=== PATIENT | female | born 1995 ===

== ENCOUNTER 2017-06-15 04:25 | Inpatient (IN) | payer MEDICAID ==
[2017-06-15 04:25] VITALS: BMI 40.6
--- NOTE | 2017-06-15 04:59 | ED PDOC ---
Arrival/HPI <Hai Cage - Last Filed: 06/15/17 06:49> - General Historian: Patient - History of Present Illness Time/Duration: 4-6 hours Symptom Onset: Sudden Symptom Course: Worsening Quality: Stabbing, Burning Activities at Onset: Light <Celina Metz - Last Filed: 06/15/17 19:27> - General Chief Complaint: GI Problem Time Seen by Provider: 06/15/17 04:31 - History of Present Illness Narrative History of Present Illness (Text): 06/15/17 04:57 Patient admitted to 2 episodes of vomiting and 3 episodes of diarrhea starting 21:45 06/14/17. Patient came to the ED because she felt that it wasn't getting better. Patient states she's come to the ED for the same reasons in the past. Patient admits to midepigastric pain, right upper quadrant pain and back pain which is more chronic. Patient admits to nausea, vomiting, diarrhea. Patient denies fever, chills, constipation, shortness of breath, chest pain, palpitations. Patient states she has a family history of cholecystitis with cholecystectomy. Patient denies having issues with gallbladder in the past. (Celina Metz) Past Medical History - Provider Review Nursing Documentation Reviewed: Yes - Infectious Disease Hx of Infectious Diseases: None - Cardiac Hx Cardiac Disorders: No - Pulmonary Hx Respiratory Disorders: No - Neurological Hx Neurological Disorder: No - HEENT Hx HEENT Disorder: No - Renal Hx Renal Disorder: No - Endocrine/Metabolic Hx Endocrine Disorders: No - Hematological/Oncological Hx Blood Disorders: No - Integumentary Hx Dermatological Disorder: No - Musculoskeletal/Rheumatological Hx Musculoskeletal Disorders: No - Gastrointestinal Hx Gastrointestinal Disorders: Yes Hx Gastritis: Yes - Genitourinary/Gynecological Hx Genitourinary Disorders: No - Psychiatric Hx Psychophysiologic Disorder: No Hx Substance Use: No - Anesthesia Hx Anesthesia: No <Celina Metz - Last Filed: 06/15/17 19:27> Family/Social History - Physician Review Nursing Documentation Reviewed: Yes Family/Social History: Other (cholelithiasis, cholecystitis, cholecystectomy) Smoking Status: Never Smoked Hx Alcohol Use: Yes Frequency of alcohol use: Socially Hx Substance Use: No <Celina Metz - Last Filed: 06/15/17 19:27> Allergies/Home Meds <Hai Cage - Last Filed: 06/15/17 06:49> <Celina Metz - Last Filed: 06/15/17 19:27> Allergies/Adverse Reactions: Allergies No Known Allergies Allergy (Verified 06/15/17 12:10) Home Medications: Home Meds Medication Instructions Recorded Confirmed RX: No Known Home Med 06/15/17 06/15/17 Review of Systems - Physician Review All systems were reviewed & negative as marked: Yes - Review of Systems Constitutional: Normal. absent: Fatigue, Weight Change, Fevers Respiratory: absent: SOB, Cough, Sputum, Wheezing Cardiovascular: absent: Chest Pain, Palpitations, Edema Gastrointestinal: Abdominal Pain, Stool Changes, Diarrhea, Nausea, Vomiting, Appetite Changes. absent: Constipation, Hematochezia, Hematemesis, Anorexia, Food Intolerance Genitourinary Female: absent: Dysuria, Frequency, Hematuria Musculoskeletal: absent: Arthralgias, Back Pain, Neck Pain, Joint Swelling, Myalgias Skin: absent: Rash, Pruritis, Skin Lesions, Laceration, Abscess Neurological: absent: Headache, Dizziness, Focal Weakness Endocrine: absent: Diaphoresis, Polyuria, Polydipsia Hemo/Lymphatic: absent: Adenopathy, Easy Bleeding, Easy Bruising Psychiatric: absent: Anxiety, Depression, Suicidal Ideation <Celina Metz - Last Filed: 06/15/17 19:27> Physical Exam Vital Signs Reviewed: Yes <NilesHai - Last Filed: 06/15/17 06:49> Vital Signs Reviewed: Yes Temperature: Afebrile Blood Pressure: Normal Pulse: Regular Respiratory Rate: Normal Appearance: Positive for: Well-Appearing Pain Distress: Mild Mental Status: Positive for: Alert and Oriented X 3. No: Confused, Agitated, Lethargic - Systems Exam Head: Present: Atraumatic, Normocephalic. No: Tenderness, Contusion, Swelling Pupils: Present: PERRL Extroacular Muscles: Present: EOMI Conjunctiva: Present: Normal. No: Injected, Icteric Mouth: Present: Dry. No: Drooling, Trismus Nose (External): Present: Atraumatic. No: Abrasion, Contusion, Laceration Nose (Internal): Present: Normal Inspection. No: No Active Bleeding, Moist, Engorged, Edematous Neck: Present: Normal Range of Motion, Trachea Midline. No: MIDLINE TENDERNESS , JVD, Lymphadenopathy, Bruit Respiratory/Chest: Present: Clear to Auscultation, Good Air Exchange. No: Respiratory Distress, Accessory Muscle Use Cardiovascular: Present: Regular Rate and Rhythm, Normal S1, S2 Abdomen: Present: Tenderness (midepigastric, RUQ pain, + Renae's sign), Guarding. No: Normal Bowel Sounds (hypoactive), Peritoneal Signs Back: Present: Normal Inspection. No: CVA Tenderness, Midline Tenderness, Paraspinal Tenderness Upper Extremity: Present: Normal Inspection, Normal ROM, NORMAL PULSES, Capillary Refill < 2s. No: Edema, Tenderness, Swelling, Erythema Lower Extremity: Present: Normal Inspection, NORMAL PULSES, Normal ROM, Capillary Refill < 2 s. No: Edema Neurological: Present: GCS=15, CN II-XII Intact, Speech Normal Skin: Present: Warm, Dry, Normal Color. No: Rashes, Diaphoretic, Erythematous Psychiatric: Present: Alert, Oriented x 3, Normal Insight, Normal Concentration , Normal Affect, Normal Mood <Celina Metz - Last Filed: 06/15/17 19:27> Vital Signs Temp Pulse Resp BP Pulse Ox 06/15/17 09:49 97.9 F 76 17 116/70 98 06/15/17 06:30 87 17 121/96 H 100 06/15/17 04:38 99 F 90 18 135/70 99 Medical Decision Making - Lab Interpretations I have reviewed the lab results: Yes <Hai Cage - Last Filed: 06/15/17 06:49> Re-evaluation Time: 06:09 Reassessment Condition: Re-examined, Improving,but remains with symptoms - Lab Interpretations I have reviewed the lab results: Yes <Celina Metz - Last Filed: 06/15/17 19:27> ED Course and Treatment: Patient Seen With Resident: In agreement with resident note which contains more details about the patient. Patient was seen and evaluated with resident. Came up with plan and treatment together. Patient presents complaining of nausea, vomiting, and diarrhea that began last night. Plan: -- Labs -- IV FLuids, Zofran Inj 06/15/17 06:50 Feels well; currently in US; consider GB disease. (Hai Cage) 06/15/17 05:02 cbc cmp lipase mag phos IVF NS @250cc/hr 06/15/17 05:33 patient asking for pain medication Toradol ordered Patient vomited x 1 episode Reglan ordered 06/15/17 06:04 RUQ Abdominal US ordered for elevated T bili, and elevated LFTs (T bili 1.7 AST/ALT 211/168) (Celina Metz) - Lab Interpretations Lab Results: 06/15/17 04:45 06/15/17 04:45 Lab Results 06/15/17 08:30: Direct Bilirubin 1.0 H 06/15/17 04:45: Sodium 142, Potassium 4.0, Chloride 104, Carbon Dioxide 25, Anion Gap 17, BUN 9, Creatinine 0.6 L, Est GFR ( Amer) > 60, Est GFR (Non -Af Amer) > 60, Random Glucose 111 H, Calcium 10.2, Magnesium 1.9, Total Bilirubin 1.7 H, AST 211 H D, ALT 168 H, Alkaline Phosphatase 104, Total Protein 7.8, Albumin 4.3, Globulin 3.5, Albumin/Globulin Ratio 1.2, Lipase 85 06/15/17 04:45: WBC 13.9 H, RBC 5.02, Hgb 13.6, Hct 41.9, MCV 83.5, MCH 27.1, MCHC 32.5, RDW 13.9, Plt Count 327, MPV 11.3 H, Gran % 72.7 H, Lymph % (Auto) 20.2 L, [place] % (Auto) 6.6 H, Eos % (Auto) 0.3 L, Baso % (Auto) 0.2, Gran # 10.12 H, Lymph # (Auto) 2.8, [place] # (Auto) 0.9 H, Eos # (Auto) 0.0, Baso # (Auto ) 0.03 06/15/17 04:35: Urine Color Yellow, Urine Appearance Clear, Urine pH 6.0, Ur Specific [place] 1.025, Urine Protein Negative, Urine Glucose (UA) Negative, Urine Ketones Negative, Urine Blood Negative, Urine Nitrate Negative, Urine Bilirubin Negative, Urine Urobilinogen 0.2, Ur Leukocyte Esterase Negative, Urine HCG, Qual Negative T bili 1.7 AST/ALT 211/168 leukocytosis 13.9 (Celina Metz) - RAD Interpretation Narrative RAD Interpretations (Text): abdominal US CBD dilation 0.68cm fatty infiltration of liver cholelithiasis, no pericholecystic fluid. (Lashay,Celina) Radiology Orders: 06/15/17 05:53 ABDOMEN COMPLETE [US] Stat 06/15/17 08:50 MRCP AND ABDOMEN W/O CONTRAST [MRI] Routine - Medication Orders Current Medication Orders: Metronidazole (Flagyl) 500 mg in 100 mls @ 100 mls/hr IVPB Q8 BREA PRN Reason: Protocol Last Admin: 06/15/17 15:14 Dose: 100 mls/hr eMAR Start Stop Document 06/15/17 15:14 CV (Rec: 06/15/17 15:14 CV [place] [id number]) Intravenous Solution Start Date 06/15/17 Start Time 15:14 Ceftriaxone Sodium (Rocephin 1 Gram Ivpb) 1 gm in 100 mls @ 100 mls/hr IVPB DAILY BREA PRN Reason: Protocol Last Admin: 06/15/17 10:12 Dose: 100 mls/hr eMAR Start Stop Document 06/15/17 10:12 EWO (Rec: 06/15/17 10:12 EWO [id number]) Intravenous Solution Start Date 06/15/17 Start Time 10:12 End Date 06/15/17 End time 11:12 Total Infusion Time 60 Ondansetron HCl (Zofran Inj) 4 mg IVP Q6H PRN PRN Reason: Nausea/Vomiting Pantoprazole Sodium (Protonix Inj) 40 mg IVP DAILY [facility] Last Admin: 06/15/17 11:00 Dose: 40 mg IVP Administration Document 06/15/17 11:00 CV (Rec: 06/15/17 15:14 CV [place] [id number]) Charges for Administration # of IVP Administrations 1 Tramadol HCl (Ultram) 50 mg PO TID PRN PRN Reason: Pain, moderate (4-7) Discontinued Medications Sodium Chloride (Sodium Chloride 0.9%) 1,000 mls @ 250 mls/hr IV .Q4H [facility] Last Admin: 06/15/17 05:04 Dose: 250 mls/hr eMAR Start Stop Document 06/15/17 05:04 RD (Rec: 06/15/17 05:04 RD [id number]) Intravenous Solution Start Date 06/15/17 Start Time 05:04 Sodium Chloride (Sodium Chloride 0.9%) 1,000 mls @ 150 mls/hr IV .Q6H40M BREA Last Admin: 06/15/17 09:06 Dose: 150 mls/hr eMAR Start Stop Document 06/15/17 09:06 EWO (Rec: 06/15/17 09:06 EWO [id number]) Intravenous Solution Start Date 06/15/17 Start Time 09:06 Sodium Chloride (Sodium Chloride 0.9%) 1,000 mls @ 100 mls/hr IV .Q10H STA Stop: 06/15/17 19:08 Last Admin: 06/15/17 09:40 Dose: 100 mls/hr eMAR Start Stop Document 06/15/17 09:40 EWO (Rec: 06/15/17 09:40 EWO [id number]) Intravenous Solution Start Date 06/15/17 Start Time 09:40 Ketorolac Tromethamine (Toradol) 30 mg IVP STAT STA Stop: 06/15/17 05:29 Last Admin: 06/15/17 05:39 Dose: 30 mg [facility] Pain Assessment Document 06/15/17 05:39 AB (Rec: 06/15/17 05:39 AB [id number]) Pain Reassessment Is this a pain reassessment? Yes Sleep Is patient sleeping during reassessment? No Presence of Pain Presence of Pain Yes Pain Scale Used Pain Scale Used Numeric Location Pain Location Body Site Abdomen IVP Administration Document 06/15/17 05:39 AB (Rec: 06/15/17 05:39 AB [id number]) Charges for Administration # of IVP Administrations 1 Re-Assess: [place] Pain Assessment Document 06/15/17 06:39 CV (Rec: 06/15/17 19:02 CV [id number]) Pain Reassessment Is this a pain reassessment? Yes Presence of Pain Presence of Pain No Metoclopramide HCl (Reglan) 10 mg IVP STAT STA Stop: 06/15/17 05:32 Last Admin: 06/15/17 05:39 Dose: 10 mg IVP Administration Document 06/15/17 05:39 AB (Rec: 06/15/17 05:39 AB [id number]) Charges for Administration # of IVP Administrations 1 Ondansetron HCl (Zofran Inj) 8 mg IVP STAT STA Stop: 06/15/17 04:50 Last Admin: 06/15/17 05:04 Dose: 8 mg IVP Administration Document 06/15/17 05:04 RD (Rec: 06/15/17 05:04 RD [id number]) Charges for Administration # of IVP Administrations 1 Pneumococcal Polyvalent Vaccine (Pneumovax 23 Vaccine) 0.5 ml IM .ONCE ONE Stop: 06/15/17 13:24 - Scribe Statement The provider has reviewed the documentation as recorded by the Scribe <Hai Cage - Last Filed: 06/15/17 06:49> <Celina Metz - Last Filed: 06/15/17 19:27> - Scribe Statement Gisela Weir Provider Scribe Attestation: All medical record entries made by the Scribe were at my direction and personally dictated by me. I have reviewed the chart and agree that the record accurately reflects my personal performance of the history, physical exam, medical decision making, and the department course for this patient. I have also personally directed, reviewed, and agree with the discharge instructions and disposition. (Hai Cage) Disposition/Present on Arrival <Hai Cage - Last Filed: 06/15/17 06:49> - Present on Arrival Any Indicators Present on Arrival: No History of DVT/PE: No History of Uncontrolled Diabetes: No Urinary Catheter: No History of Decub. Ulcer: No History Surgical Site Infection Following: None - Disposition Have Diagnosis and Disposition been Completed?: Yes Disposition Time: 07:00 Patient Plan: Discharge <Celina Metz - Last Filed: 06/15/17 19:27> - Disposition Diagnosis: Biliary colic, Elevated LFTs Disposition: HOSPITALIZED Patient Problems: Current Active Problems Problem Status Onset Biliary colic Acute Elevated LFTs Acute Condition: STABLE
[2017-06-15] MEDS ORDERED: Sodium Chloride 0.9% 1,000 ML IV SCH ×2 (05:00→09:00)
[2017-06-15 05:45] LABS: ALB/GLOB RATIO 1.2 (1.1-1.8); ALBUMIN 4.3 g/dL (3.0-4.8); ALT/SGPT 168 U/L (7-56); AST/SGOT 211 U/L (14-36); BLOOD UREA NITROGEN 9 mg/dL (7-21); CALCIUM 10.2 mg/dL (8.4-10.5); GFR AFRICAN-AMERICAN > 60; GFR NON-AFRICAN AMERICAN > 60; LIPASE 85 U/L (23-300); MAGNESIUM 1.9 mg/dL (1.7-2.2)
[2017-06-15 05:46] LABS: BASO # 0.03 K/mm3 (0.0-2.0); BASO % 0.2 % (0.0-3.0); EOS % 0.3 % (1.5-5.0); GRAN # 10.12 (1.4-6.5); GRAN % 72.7 % (50.0-68.0); HEMOGLOBIN 13.6 g/dL (12.0-16.0); LYMPH # 2.8 (1.2-3.4); LYMPH % 20.2 % (22.0-35.0); MEAN CELL VOLUME 83.5 fl (80.0-105.0); MEAN CORPUSCULAR HEMOGLOBIN 27.1 pg (25.0-35.0); MEAN CORPUSCULAR HGB CONC 32.5 g/dl (31.0-37.0); MEAN PLATELET VOLUME 11.3 fl (7.0-11.0); MONO # 0.9 (0.1-0.6); MONO % 6.6 % (1.0-6.0); RBC 5.02 10^6/uL (3.5-6.1); RED CELL DISTRIBUTION WIDTH 13.9 % (11.5-14.5); WHITE BLOOD COUNT 13.9 10^3/ul (4.5-11.0)
--- NOTE | 2017-06-15 06:58 | US ---
EXAM: US Abdomen Complete CLINICAL HISTORY: 21 years old, female; Pain; Abdominal pain; Generalized; Additional info: Ruq pain, elevated lfts, t bili elevation TECHNIQUE: Real-time ultrasound of the abdomen (complete) with image documentation. COMPARISON: CT - ABD PELVIS IV CONTRAST ONLY 2017-03-19 00:09 FINDINGS: Liver: Fatty infiltration. No mass. No intrahepatic ductal dilatation. Gallbladder: Gallstones. No wall thickening. No pericholecystic fluid. Positive Renae's sign. Common bile duct: Up to 0.68 cm in diameter. No stones. Pancreas: Unremarkable as visualized. Kidneys: Normal echogenicity. No hydronephrosis. Spleen: No splenomegaly. Aorta: Unremarkable. No aneurysm. Inferior vena cava: Unremarkable. Free fluid: No significant free fluid. IMPRESSION: 1. Cholelithiasis with positive Renae's sign. Clinical correlation is needed. 2. Borderline biliary ductal dilatation. Correlate with laboratory values. Consider MRCP. 3. Incidental/non-acute findings are described above.
--- NOTE | 2017-06-15 07:19 | ED PDOC ---
Physical Exam Vital Signs Reviewed: Yes Vital Signs Temp Pulse Resp BP Pulse Ox 06/15/17 06:30 87 17 121/96 H 100 06/15/17 04:38 99 F 90 18 135/70 99 Temperature: Afebrile Blood Pressure: Normal Pulse: Regular Respiratory Rate: Normal Appearance: Positive for: Well-Appearing, Uncomfortable, Other (uncomfortable, alert/awake, GCS = 15, oriented x 3, resting in bed) Pain Distress: None Mental Status: Positive for: Alert and Oriented X 3 - Systems Exam Head: Present: Atraumatic, Normocephalic Pupils: Present: PERRL Extroacular Muscles: Present: EOMI Conjunctiva: Present: Normal Ears: Present: Normal Mouth: Present: Moist Mucous Membranes, Normal Teeth Pharnyx: Present: Normal Nose (External): Present: Atraumatic Nose (Internal): Present: Normal Inspection Neck: Present: Normal Range of Motion, Trachea Midline. No: MIDLINE TENDERNESS Respiratory/Chest: Present: Clear to Auscultation, Good Air Exchange Cardiovascular: Present: Regular Rate and Rhythm, Normal S1, S2. No: Murmurs Abdomen: Present: Normal Bowel Sounds, Other (+ renae's sign, no mcburney's point tenderness, no masses/rebound/guarding/rigidity, obese/well nourished female) Back: Present: Normal Inspection. No: CVA Tenderness, Midline Tenderness Upper Extremity: Present: Normal Inspection, Normal ROM, NORMAL PULSES, Neurovascularly Intact, Capillary Refill < 2s Lower Extremity: Present: Normal Inspection, NORMAL PULSES, Normal ROM, Neurovascularly Intact, Capillary Refill < 2 s Neurological: Present: GCS=15, CN II-XII Intact, Speech Normal Skin: Present: Warm, Normal Color Psychiatric: Present: Alert, Oriented x 3 Medical Decision Making ED Course and Treatment: 06/15/17 07:18 The patient is signed over to me by Dr. Cage. The patient is currently pending US results and reevaluation to be disposition accordingly. 06/15/17 07:57 Ultrasound IMPRESSION: 1. Cholelithiasis with positive Renae's sign. Clinical correlation is needed. 2. Borderline biliary ductal dilatation. Correlate with laboratory values. Consider MRCP. 3. Incidental/non-acute findings are described above. 06/15/17 08:02 Spoke to zoning engineer surgical training specialist and made aware, will evaluate patient at bedside for surgical consult. 06/15/17 0845 surgery team/resident evaluated patient, would like patient admitted to MEDICINE , initiate GI consult and plan is to take the GB out saturday; pt is made aware, and will be recommended for admission pt is made aware of her medical results pt agrees with admission 9:00 - hospitalists contacted, made aware, agrees with admission Re-evaluation Time: 08:50 Reassessment Condition: Improving,but remains with symptoms - Lab Interpretations Lab Results: 06/15/17 04:45 06/15/17 04:45 Lab Results 06/15/17 04:45: Sodium 142, Potassium 4.0, Chloride 104, Carbon Dioxide 25, Anion Gap 17, BUN 9, Creatinine 0.6 L, Est GFR ( Amer) > 60, Est GFR (Non -Af Amer) > 60, Random Glucose 111 H, Calcium 10.2, Magnesium 1.9, Total Bilirubin 1.7 H, AST 211 H D, ALT 168 H, Alkaline Phosphatase 104, Total Protein 7.8, Albumin 4.3, Globulin 3.5, Albumin/Globulin Ratio 1.2, Lipase 85 06/15/17 04:45: WBC 13.9 H, RBC 5.02, Hgb 13.6, Hct 41.9, MCV 83.5, MCH 27.1, MCHC 32.5, RDW 13.9, Plt Count 327, MPV 11.3 H, Gran % 72.7 H, Lymph % (Auto) 20.2 L, [place] % (Auto) 6.6 H, Eos % (Auto) 0.3 L, Baso % (Auto) 0.2, Gran # 10.12 H, Lymph # (Auto) 2.8, [place] # (Auto) 0.9 H, Eos # (Auto) 0.0, Baso # (Auto ) 0.03 I have reviewed the lab results: Yes Interpretation: Abnormal lab values (elevated LFTs and Tbili) - RAD Interpretation Radiology Orders: 06/15/17 05:53 ABDOMEN COMPLETE [US] Stat 06/15/17 08:50 MRCP AND ABDOMEN W/O CONTRAST [MRI] Routine Funnel Setter: Radiologist - Medication Orders Current Medication Orders: Sodium Chloride (Sodium Chloride 0.9%) 1,000 mls @ 150 mls/hr IV .Q6H40M BREA Last Admin: 06/15/17 09:06 Dose: 150 mls/hr eMAR Start Stop Document 06/15/17 09:06 EWO (Rec: 06/15/17 09:06 EWO [id number]) Intravenous Solution Start Date 06/15/17 Start Time 09:06 Ciprofloxacin (Cipro 400mg/200ml Dsw) 400 mg in 200 mls @ 133.3 mls/hr IVPB Q12 BREA PRN Reason: Protocol Stop: 06/15/17 11:31 Metronidazole (Flagyl) 500 mg in 100 mls @ 100 mls/hr IVPB Q8 BREA PRN Reason: Protocol Sodium Chloride (Sodium Chloride 0.9%) 1,000 mls @ 100 mls/hr IV .Q10H STA Stop: 06/15/17 19:08 Ondansetron HCl (Zofran Inj) 4 mg IVP Q6H PRN PRN Reason: Nausea/Vomiting Tramadol HCl (Ultram) 50 mg PO TID PRN PRN Reason: Pain, moderate (4-7) Discontinued Medications Sodium Chloride (Sodium Chloride 0.9%) 1,000 mls @ 250 mls/hr IV .Q4H [facility] Last Admin: 06/15/17 05:04 Dose: 250 mls/hr eMAR Start Stop Document 06/15/17 05:04 RD (Rec: 06/15/17 05:04 RD [id number]) Intravenous Solution Start Date 06/15/17 Start Time 05:04 Ketorolac Tromethamine (Toradol) 30 mg IVP STAT STA Stop: 06/15/17 05:29 Last Admin: 06/15/17 05:39 Dose: 30 mg MAR Pain Assessment Document 06/15/17 05:39 AB (Rec: 06/15/17 05:39 AB [id number]) Pain Reassessment Is this a pain reassessment? Yes Sleep Is patient sleeping during reassessment? No Presence of Pain Presence of Pain Yes Pain Scale Used Pain Scale Used Numeric Location Pain Location Body Site Abdomen IVP Administration Document 06/15/17 05:39 AB (Rec: 06/15/17 05:39 AB [id number]) Charges for Administration # of IVP Administrations 1 Metoclopramide HCl (Reglan) 10 mg IVP STAT STA Stop: 06/15/17 05:32 Last Admin: 06/15/17 05:39 Dose: 10 mg IVP Administration Document 06/15/17 05:39 AB (Rec: 06/15/17 05:39 AB [id number]) Charges for Administration # of IVP Administrations 1 Ondansetron HCl (Zofran Inj) 8 mg IVP STAT STA Stop: 06/15/17 04:50 Last Admin: 06/15/17 05:04 Dose: 8 mg IVP Administration Document 06/15/17 05:04 RD (Rec: 06/15/17 05:04 RD [id number]) Charges for Administration # of IVP Administrations 1 - Scribe Statement The provider has reviewed the documentation as recorded by the Wilburibrichi Michael Provider Scribe Attestation: All medical record entries made by the Scribe were at my direction and personally dictated by me. I have reviewed the chart and agree that the record accurately reflects my personal performance of the history, physical exam, medical decision making, and the department course for this patient. I have also personally directed, reviewed, and agree with the discharge instructions and disposition. Disposition/Present on Arrival - Present on Arrival Any Indicators Present on Arrival: No History of DVT/PE: No History of Uncontrolled Diabetes: No Urinary Catheter: No History of Decub. Ulcer: No History Surgical Site Infection Following: None - Disposition Have Diagnosis and Disposition been Completed?: Yes Diagnosis: Biliary colic, Elevated LFTs Disposition: HOSPITALIZED Disposition Time: 09:08 Patient Plan: Admission Patient Problems: Current Active Problems Problem Status Onset Biliary colic Acute Elevated LFTs Acute Condition: STABLE Forms: [employer]IQ (Sing[place]an)
[2017-06-15] MEDS ORDERED: Sodium Chloride 0.9% 1,000 ML IV STA (09:09)
--- NOTE | 2017-06-15 09:50 | CP.PCM.HP ---
<Vernon Butcher - Last Filed: 06/15/17 10:07> History of Present Illness - History of Present Illness History of Present Illness: CC: Abdominal pain with n/v/d 21 F with no past medical history presents to the emergency department for abdominal pain. Patient states that her abdominal pain started 10pm last night. The pain is located in the R upper quadrant, radiates to the back and 10/10 in severity. Patient states that the pain was accompanied with 2 episodes of non bloody non bilious vomiting, and 3 episodes of non bloody diarrhea prior to arriving to the hospital. She states that she came to the ED with similar symptoms in the past and she was told it was gastritis. Denies any recent travel or sick contacts. She denies any fevers, chills, headaches, dizziness, sob, chest pain, palpitations, urinary changes. In the ED lab work showed wbc of 13.9, AST 211, ALT 168, Tbili 1.7. Abd US showed cholelithiasis and mild CBD dilation of 0.68cm. 12 Point ROS performed and negative other than stated above PMH: Denies PSHx: Denies Med: None ALL: NKA SH: Denies smoking, etoh use, or recreational drug use FH: Denies Present on Admission - Present on Admission Any Indicators Present on Admission: No Review of Systems - Review of Systems All systems: reviewed and no additional remarkable complaints except Past Patient History - Infectious Disease Hx of Infectious Diseases: None - Past Social History Smoking Status: Never Smoked - CARDIAC Hx Cardiac Disorders: No - PULMONARY Hx Respiratory Disorders: No - NEUROLOGICAL Hx Neurological Disorder: No - HEENT Hx HEENT Problems: No - RENAL Hx Chronic Kidney Disease: No - ENDOCRINE/METABOLIC Hx Endocrine Disorders: No - HEMATOLOGICAL/ONCOLOGICAL Hx Blood Disorders: No - INTEGUMENTARY Hx Dermatological Problems: No - MUSCULOSKELETAL/RHEUMATOLOGICAL Hx Musculoskeletal Disorders: No - GASTROINTESTINAL Hx Gastrointestinal Disorders: Yes Hx Gastritis: Yes - GENITOURINARY/GYNECOLOGICAL Hx Genitourinary Disorders: No - PSYCHIATRIC Hx Psychophysiologic Disorder: No Hx Substance Use: No - SURGICAL HISTORY Hx Surgeries: No - ANESTHESIA Hx Anesthesia: No Meds Allergies/Adverse Reactions: Allergies Allergy/AdvReac Type Severity Reaction Status Date / Time No Known Allergies Allergy Verified 06/15/17 12:10 Physical Exam - Constitutional Appears: No Acute Distress - Head Exam Head Exam: ATRAUMATIC, NORMOCEPHALIC - Eye Exam Eye Exam: EOMI, PERRL Pupil Exam: NORMAL ACCOMODATION - ENT Exam ENT Exam: Mucous Membranes Moist - Respiratory Exam Respiratory Exam: Clear to Auscultation Bilateral. absent: Wheezes - Cardiovascular Exam Cardiovascular Exam: REGULAR RHYTHM, RRR, +S1, +S2 - GI/Abdominal Exam GI & Abdominal Exam: Normal Bowel Sounds, Soft, Tenderness. absent: Distended, Organomegaly Additional comments: Mild RUQ tenderness, + murpheys - Extremities Exam Extremities exam: Negative for: calf tenderness, pedal edema - Neurological Exam Neurological exam: Alert, Oriented x3 - Psychiatric Exam Psychiatric exam: Normal Mood - Skin Skin Exam: Dry, Intact, Warm Results - Vital Signs Recent Vital Signs: Last Vital Signs Temp 99 F 06/15/17 04:38 Pulse 87 06/15/17 06:30 Resp 17 06/15/17 06:30 BP 121/96 H 06/15/17 06:30 Pulse Ox 100 06/15/17 06:30 - Labs Result Diagrams: 06/15/17 04:45 06/15/17 04:45 Labs: Laboratory Results - last 24 hr 06/15/17 06/15/17 04:45 04:45 WBC 13.9 H RBC 5.02 Hgb 13.6 Hct 41.9 MCV 83.5 MCH 27.1 MCHC 32.5 RDW 13.9 Plt Count 327 MPV 11.3 H Gran % 72.7 H Lymph % (Auto) 20.2 L [place] % (Auto) 6.6 H Eos % (Auto) 0.3 L Baso % (Auto) 0.2 Gran # 10.12 H Lymph # (Auto) 2.8 [place] # (Auto) 0.9 H Eos # (Auto) 0.0 Baso # (Auto) 0.03 Sodium 142 Potassium 4.0 Chloride 104 Carbon Dioxide 25 Anion Gap 17 BUN 9 Creatinine 0.6 L Est GFR ( Amer) > 60 Est GFR (Non-Af Amer) > 60 Random Glucose 111 H Calcium 10.2 Magnesium 1.9 Total Bilirubin 1.7 H AST 211 H D ALT 168 H Alkaline Phosphatase 104 Total Protein 7.8 Albumin 4.3 Globulin 3.5 Albumin/Globulin Ratio 1.2 Lipase 85 Assessment & Plan - Assessment and Plan (Free Text) Assessment: 21 F with no past medical history presents to the emergency department for abdominal pain. Patient found to cholelithiasis on abd US, r/o choledocholithiasis. Awaiting MRCP. 1. Abdominal pain 2/2 cholelithiasis, r/o choledocholithiasis - Wbc 13.9, afebrile - AST 211, ALT 168, Tbili 1.7 - Cont to monitor LFTs - MRCP ordered - will f/u - Abx- d/danielle Cipro, started on Rocephin and Flagyl - F/u Surgery consult recs - F/u GI consult recs - Pain control - Tramadol 50mg TID PRN - Antiemetic therapy as needed - IVF with NS @ 100 - Daily labs 2. GI/DVT ppx - Protonix and SCDs & ambulation Case and plan was reviewed and discussed in detail with Dr Jensen <Ramirez Jensen - Last Filed: 06/15/17 13:43> Results - Vital Signs Recent Vital Signs: Last Vital Signs Temp 97.9 F 06/15/17 13:05 Pulse 76 06/15/17 13:05 Resp 17 06/15/17 13:05 BP 116/70 06/15/17 13:05 Pulse Ox 98 06/15/17 09:49 - Labs Result Diagrams: 06/15/17 04:45 06/15/17 04:45 Labs: Laboratory Results - last 24 hr 06/15/17 11:30 PT 12.6 H INR 1.09 H Attending/Attestation - Attestation I have personally seen and examined this patient.: Yes I have fully participated in the care of the patient.: Yes I have reviewed all pertinent clinical information: Yes Notes (Text): I have seen and examined the patient at bedside. Agree with the above note with the following additions/ exceptions: Briefly this is 21 year old female with history of morbid obesity who came for evaluation of abdominal pain and found to have biliary colic. Patient had multiple episodes of RUQ pain in the past. She has leukocytosis, hyperbilirubinemia and transaminitis. US revealed cholelithiasis and dilated CBD 7mm. MRCP pending. GI and surgery on board. Upon discharge patient will follow up with PMD of choice. Dr Ramirez Jensen
[2017-06-15] MEDS ORDERED: Ciprofloxacin 400mg/200ml D5W 400 MG/200 ML BAG IVPB SCH (10:00)
[2017-06-15] MEDS: cefTRIAXone 1 gm 1 GM/100 ML BAG IVPB SCH (10:12)
--- NOTE | 2017-06-15 10:26 | CP.PCM.CON ---
History of Present Illness - History of Present Illness History of Present Illness: Asked by hospitalist team for a GI consultation on this patient. 21 year old female with history of obesity (BMI 40) who presents to hospital with complaint of sudden onset abdominal pain which began yesterday at 10 pm. Prior to this she was in usual state of health, ate steak and rice for dinner and went to sleep. She was awoken from sleep with sharp 8/10 intensity RUQ abdominal pain which radiated to back. This was associated with nausea and two episodes of non -bloody emesis. She reports similar pain episodes which have been intermittent for the past 6 months. She denies fever/chills, weight loss, jaundice, pruritis. No prior endoscopic evaluation. Social history: non-smoker, social ETOH use Family history: reviewed, patient denies history of GI malignancies Review of Systems - Review of Systems Review of Systems: - All other comprehensive 12 point review of systems performed, negative - Cardiovascular Cardiovascular: absent: Acrocyanosis, Chest Pain, Chest Pain at Rest, Chest Pain with Activity, Claudication, Diaphoresis, Dyspnea, Dyspnea on Exertion, Edema, Irregular Heart Rhythm, Pain Radiating to Arm/Neck/Jaw, Leg Edema, Leg Ulcers, Lightheadedness, Orthopnea, Palpitations, Paroxysmal Nocturnal Dyspnea, Pedal Edema, Radiating Pain, Rapid Heart Rate, Slow Heart Rate, Syncope, Other - Respiratory Respiratory: absent: Cough, Dyspnea, Hemoptysis, Dyspnea on Exertion, Wheezing, Snoring, Stridor, Pain on Inspiration, Chest Congestion, Excessive Mucous Production, Change in Mucous Color, Pain with Coughing, Other - Gastrointestinal Gastrointestinal: Abdominal Pain, Nausea, Vomiting - Musculoskeletal Musculoskeletal: absent: Abnormal Gait, Arthralgias, Atrophy, Back Pain, Deformity, Joint Swelling, Limited Range of Motion, Loss of Height, Muscle Cramps, Muscle Weakness, Myalgias, Neck Pain, Numbness, Radiating Pain into Limb , Stiffness, Tingling, Other - Neurological Neurological: absent: Abnormal Gait, Abnormal Hearing, Abnormal Movements, Abnormal Speech, Behavioral Changes, Burning Sensations, Confusion, Convulsions , Disequilibrium, Dizziness, Numbness, Focal Weakness, Frequent Falls, Headaches , Lack of Coordination, Loss of Vision, Memory Loss, Paresthesias, Radicular Pain, Restless Legs, Sensory Deficit, Syncope, Tingling, Tremor, Vertigo, Weakness, Other Visual Disturbances, Other Past Patient History - Infectious Disease Hx of Infectious Diseases: None - Past Social History Smoking Status: Never Smoked - CARDIAC Hx Cardiac Disorders: No - PULMONARY Hx Respiratory Disorders: No - NEUROLOGICAL Hx Neurological Disorder: No - HEENT Hx HEENT Problems: No - RENAL Hx Chronic Kidney Disease: No - ENDOCRINE/METABOLIC Hx Endocrine Disorders: No - HEMATOLOGICAL/ONCOLOGICAL Hx Blood Disorders: No - INTEGUMENTARY Hx Dermatological Problems: No - MUSCULOSKELETAL/RHEUMATOLOGICAL Hx Musculoskeletal Disorders: No - GASTROINTESTINAL Hx Gastrointestinal Disorders: Yes Hx Gastritis: Yes - GENITOURINARY/GYNECOLOGICAL Hx Genitourinary Disorders: No - PSYCHIATRIC Hx Psychophysiologic Disorder: No Hx Substance Use: No - SURGICAL HISTORY Hx Surgeries: No - ANESTHESIA Hx Anesthesia: No Meds Allergies/Adverse Reactions: Allergies Allergy/AdvReac Type Severity Reaction Status Date / Time No Known Allergies Allergy Verified 05/23/17 03:48 - Medications Medications: Current Medications Metronidazole (Flagyl) 500 mg in 100 mls @ 100 mls/hr IVPB Q8 [facility] PRN Reason: Protocol Sodium Chloride (Sodium Chloride 0.9%) 1,000 mls @ 100 mls/hr IV .Q10H [facility] Stop: 06/15/17 19:08 Last Admin: 06/15/17 09:40 Dose: 100 mls/hr Ceftriaxone Sodium (Rocephin 1 Gram Ivpb) 1 gm in 100 mls @ 100 mls/hr IVPB DAILY [facility] PRN Reason: Protocol Last Admin: 06/15/17 10:12 Dose: 100 mls/hr Ondansetron HCl (Zofran Inj) 4 mg IVP Q6H PRN PRN Reason: Nausea/Vomiting Pantoprazole Sodium (Protonix Inj) 40 mg IVP DAILY [facility] Tramadol HCl (Ultram) 50 mg PO TID PRN PRN Reason: Pain, moderate (4-7) Physical Exam - Constitutional Appears: Non-toxic, No Acute Distress - Head Exam Head Exam: NORMAL INSPECTION - Eye Exam Eye Exam: EOMI, Normal appearance - ENT Exam ENT Exam: Mucous Membranes Moist - Respiratory Exam Respiratory Exam: Clear to Auscultation Bilateral - Cardiovascular Exam Cardiovascular Exam: REGULAR RHYTHM, +S1, +S2 - GI/Abdominal Exam GI & Abdominal Exam: Normal Bowel Sounds, Soft, Tenderness Additional comments: RUQ tenderness to palpation, +maier's no palpable hepato/splenomegaly - Extremities Exam Extremities exam: Positive for: normal inspection - Neurological Exam Neurological exam: Alert, CN II-XII Intact, Oriented x3, Reflexes Normal - Psychiatric Exam Psychiatric exam: Normal Affect, Normal Mood - Skin Skin Exam: Dry, Intact, Normal Color, Warm Results - Vital Signs Recent Vital Signs: Last Vital Signs Temp 97.9 F 06/15/17 09:49 Pulse 76 06/15/17 09:49 Resp 17 06/15/17 09:49 BP 116/70 06/15/17 09:49 Pulse Ox 98 06/15/17 09:49 - Labs Result Diagrams: 06/15/17 04:45 06/15/17 04:45 Assessment & Plan - Assessment and Plan (Free Text) Assessment: Obesity Abdominal pain - acute cholecystitis Transaminitis Abdominal US reviewed by me showing cholelithiasis with CBD of 7mm, no intrahepatic ductal dilation Plan: - NPO - Continue with antibiotic therapy - Obtain direct bilirubin - Continue to monitor LFTs, obtain viral hepatitis panel - Obtain MRCP for further evaluation, rule out choledocholithiasis - Follow up surgical recommendations regarding timing of potential cholecystectomy
[2017-06-15 10:57] LABS: HCG,QUALITATIVE URINE NEGATIVE (NEGATIVE)
[2017-06-15 10:59] LABS: URINE BILIRUBIN NEGATIVE (NEGATIVE); URINE BLOOD NEGATIVE (NEGATIVE); URINE GLUCOSE (UA) NEGATIVE (NEGATIVE); URINE LEUKOCYTE ESTERASE NEGATIVE Leu/uL (NEGATIVE); URINE NITRATE NEGATIVE (NEGATIVE); URINE PROTEIN NEGATIVE mg/dL (<30 mg/dL); URINE UROBILINOGEN 0.2 E.U./dL (<1 E.U./dL)
[2017-06-15 11:00] LABS: URINE APPEARANCE CLEAR (CLEAR); URINE COLOR YELLOW (YELLOW)
[2017-06-15 12:13] LABS: INR 1.09 (0.93-1.08); PROTHROMBIN TIME 12.6 SECONDS (9.4-12.5)
--- NOTE | 2017-06-15 13:02 | CP.PCM.CON ---
<Sung Yuan - Last Filed: 06/15/17 15:20> History of Present Illness - History of Present Illness History of Present Illness: Surgery Consult note. Dr. Garcia. 21yo F with no PMHx here for evaluation of RUQ pain. She states that she ate pizza at around 8PM last night and then felt severe RUQ pain which began at 10PM. Pain was described as sharp, unrelenting, radiates to mid back. Associated with nausea, no vomiting. States that she has had similar episodes for the past 6 months, however, this episode has been the worst one yet. She was never diagnosed with gallstones in the past. Does report a strong family history of gallstones. Currently, she denies any F/C. No CP/SOB. No sick contacts. Is sexually active. Denies possibility of , and LMP was 3 weeks ago. In ED, Abd US shows cholelithiasis, no wall thickening, no perichole fluid, no CBD stone, 6.8mm CBD. PMHx: denies PSHx: denies Social Hx: denies Tobacco use; Rare, social ETOH use; Denies illicit drugs NKDA Review of Systems - Constitutional Constitutional: absent: Chills, Fever - Cardiovascular Cardiovascular: absent: Chest Pain, Dyspnea - Respiratory Respiratory: absent: Dyspnea - Gastrointestinal Gastrointestinal: Abdominal Pain, Nausea. absent: Diarrhea, Hematemesis, Hematochezia, Melena, Vomiting - Genitourinary Genitourinary: absent: Dysuria Past Patient History - Infectious Disease Hx of Infectious Diseases: None - Past Social History Smoking Status: Never Smoked - CARDIAC Hx Cardiac Disorders: No - PULMONARY Hx Respiratory Disorders: No - NEUROLOGICAL Hx Neurological Disorder: No - HEENT Hx HEENT Problems: No - RENAL Hx Chronic Kidney Disease: No - ENDOCRINE/METABOLIC Hx Endocrine Disorders: No - HEMATOLOGICAL/ONCOLOGICAL Hx Blood Disorders: No - INTEGUMENTARY Hx Dermatological Problems: No - MUSCULOSKELETAL/RHEUMATOLOGICAL Hx Musculoskeletal Disorders: No - GASTROINTESTINAL Hx Gastrointestinal Disorders: Yes Hx Gastritis: Yes - GENITOURINARY/GYNECOLOGICAL Hx Genitourinary Disorders: No - PSYCHIATRIC Hx Psychophysiologic Disorder: No Hx Substance Use: No - SURGICAL HISTORY Hx Surgeries: No - ANESTHESIA Hx Anesthesia: No Meds Allergies/Adverse Reactions: Allergies Allergy/AdvReac Type Severity Reaction Status Date / Time No Known Allergies Allergy Verified 06/15/17 12:10 - Medications Medications: Current Medications Metronidazole (Flagyl) 500 mg in 100 mls @ 100 mls/hr IVPB Q8 [facility] PRN Reason: Protocol Sodium Chloride (Sodium Chloride 0.9%) 1,000 mls @ 100 mls/hr IV .Q10H [facility] Stop: 06/15/17 19:08 Last Admin: 06/15/17 09:40 Dose: 100 mls/hr Ceftriaxone Sodium (Rocephin 1 Gram Ivpb) 1 gm in 100 mls @ 100 mls/hr IVPB DAILY [facility] PRN Reason: Protocol Last Admin: 06/15/17 10:12 Dose: 100 mls/hr Ondansetron HCl (Zofran Inj) 4 mg IVP Q6H PRN PRN Reason: Nausea/Vomiting Pantoprazole Sodium (Protonix Inj) 40 mg IVP DAILY [facility] Tramadol HCl (Ultram) 50 mg PO TID PRN PRN Reason: Pain, moderate (4-7) Physical Exam - Constitutional Appears: Well, Non-toxic, No Acute Distress - Head Exam Head Exam: ATRAUMATIC, NORMAL INSPECTION, NORMOCEPHALIC - Eye Exam Eye Exam: EOMI. absent: Scleral icterus - ENT Exam ENT Exam: Mucous Membranes Moist - Respiratory Exam Respiratory Exam: NORMAL BREATHING PATTERN. absent: Accessory Muscle Use, Respiratory Distress - Cardiovascular Exam Cardiovascular Exam: absent: JVD - GI/Abdominal Exam GI & Abdominal Exam: Soft, Tenderness (RUQ tenderness to palpation. Renae's sign positive.). absent: Distended, Firm, Guarding, Hernia, Mass, Rebound, Rigid - Extremities Exam Extremities exam: Positive for: normal inspection. Negative for: calf tenderness - Back Exam Back exam: NORMAL INSPECTION - Neurological Exam Neurological exam: Alert, Oriented x3 - Psychiatric Exam Psychiatric exam: Normal Affect, Normal Mood - Skin Skin Exam: Dry, Intact, Normal Color, Warm Results - Vital Signs Recent Vital Signs: Last Vital Signs Temp 97.9 F 06/15/17 09:49 Pulse 76 06/15/17 09:49 Resp 17 06/15/17 09:49 BP 116/70 06/15/17 09:49 Pulse Ox 98 06/15/17 09:49 - Labs Result Diagrams: 06/15/17 04:45 06/15/17 04:45 Labs: Laboratory Results - last 24 hr 06/15/17 11:30 PT 12.6 H INR 1.09 H Assessment & Plan - Assessment and Plan (Free Text) Assessment: 21yo F with symptomatic cholelithiasis, possible cholecystitis. R/o Choledocholithiasis - Leukocytosis noted; Afebrile - Abd US noted - LFTs noted Plan: - f/u MRCP as ordered - Liquids until ready for MRCP. Will be obtained tomorrow as per MRI dept - IVF - IV abx - Pain management - Zofran - f/u GI recs - Will plan for OR early next week, pending current work-up Further recs as per Dr. Radha Yuan PGY1 surgery pager: [phone] <Reese Garcia - Last Filed: 06/16/17 10:48> Meds - Medications Medications: Current Medications Metronidazole (Flagyl) 500 mg in 100 mls @ 100 mls/hr IVPB Q8 [facility] PRN Reason: Protocol Last Admin: 06/16/17 05:38 Dose: 100 mls/hr Ceftriaxone Sodium (Rocephin 1 Gram Ivpb) 1 gm in 100 mls @ 100 mls/hr IVPB DAILY [facility] PRN Reason: Protocol Last Admin: 06/16/17 09:51 Dose: 100 mls/hr Dextrose/Sodium Chloride (Dextrose 5%/0.45% Ns 1000 Ml) 1,000 mls @ 125 mls/hr IV .Q8H [facility] Last Admin: 06/16/17 08:45 Dose: 125 mls/hr Ondansetron HCl (Zofran Inj) 4 mg IVP Q6H PRN PRN Reason: Nausea/Vomiting Pantoprazole Sodium (Protonix Inj) 40 mg IVP DAILY [facility] Last Admin: 06/16/17 09:50 Dose: 40 mg Tramadol HCl (Ultram) 50 mg PO TID PRN PRN Reason: Pain, moderate (4-7) Results - Vital Signs Recent Vital Signs: Last Vital Signs Temp 97.8 F 06/16/17 07:30 Pulse 69 06/16/17 07:30 Resp 20 06/16/17 07:30 BP 130/77 06/16/17 07:30 Pulse Ox 97 06/16/17 07:30 - Labs Result Diagrams: 06/16/17 08:36 06/16/17 08:36 Labs: Laboratory Results - last 24 hr 06/15/17 06/16/17 06/16/17 11:30 08:36 08:36 WBC 10.0 D RBC 4.44 Hgb 11.7 L Hct 37.6 MCV 84.7 MCH 26.4 MCHC 31.1 RDW 14.2 Plt Count 273 MPV 11.3 H Gran % 66.0 Lymph % (Auto) 25.8 [place] % (Auto) 6.8 H Eos % (Auto) 1.2 L Baso % (Auto) 0.2 Gran # 6.57 H Lymph # (Auto) 2.6 [place] # (Auto) 0.7 H Eos # (Auto) 0.1 Baso # (Auto) 0.02 PT 12.6 H INR 1.09 H Sodium 142 Potassium 3.8 Chloride 108 H Carbon Dioxide 23 Anion Gap 15 BUN 9 Creatinine 0.7 Est GFR ( Amer) > 60 Est GFR (Non-Af Amer) > 60 Random Glucose 66 L Calcium 9.0 Total Bilirubin 1.2 AST 117 H D ALT 208 H Alkaline Phosphatase 98 Total Protein 6.5 Albumin 3.5 Globulin 3.0 Albumin/Globulin Ratio 1.2 Attending/Attestation - Attestation I have personally seen and examined this patient.: Yes I have fully participated in the care of the patient.: Yes I have reviewed all pertinent clinical information: Yes Notes (Text): Pt was seen and examined at bedside Agree with above note and assessment Pt with RLQ pain and tenderness Labs and radiology reviewed Ass: Cholelithiasis with cholecystitis with Abnormal LFts Plan: MRCP GI consult for possible ERCP NPO, IVF IV antibiotics Plan d.w pt in detail Risk and benefit explained in detail.
[2017-06-15] MEDS ORDERED: Influenza Vaccine 60 mcg/0.5 mL SYR (4YR UP) IM ONE (13:23)
[2017-06-15] MEDS ORDERED: Pneumococcal 23-Valent Vaccine IM ONE (13:23)
[2017-06-15] MEDS: metroNIDAZOLE IV 500 mg/100 ml 500 MG/100 ML BAG IVPB SCH ×2 (15:14→21:55)
--- NOTE | 2017-06-15 17:04 | RAD ---
HISTORY: Pre-op eval COMPARISON: No prior. FINDINGS: LUNGS: No active pulmonary disease. PLEURA: No significant pleural effusion identified, no pneumothorax apparent. CARDIOVASCULAR: Normal. OSSEOUS STRUCTURES: No significant abnormalities. VISUALIZED UPPER ABDOMEN: Normal. OTHER FINDINGS: None. IMPRESSION: No active disease.
[2017-06-16] MEDS: metroNIDAZOLE IV 500 mg/100 ml 500 MG/100 ML BAG IVPB SCH ×3 (05:38→22:14)
[2017-06-16] MEDS: Dextrose 5%/0.45% NS 1,000 ML IV SCH (08:45)
[2017-06-16 08:51] LABS: BASO # 0.02 K/mm3 (0.0-2.0); BASO % 0.2 % (0.0-3.0); EOS # 0.1 (0.0-0.7); EOS % 1.2 % (1.5-5.0); GRAN # 6.57 (1.4-6.5); HEMOGLOBIN 11.7 g/dL (12.0-16.0); LYMPH # 2.6 (1.2-3.4); LYMPH % 25.8 % (22.0-35.0); MEAN CELL VOLUME 84.7 fl (80.0-105.0); MEAN CORPUSCULAR HEMOGLOBIN 26.4 pg (25.0-35.0); MEAN CORPUSCULAR HGB CONC 31.1 g/dl (31.0-37.0); MEAN PLATELET VOLUME 11.3 fl (7.0-11.0); MONO # 0.7 (0.1-0.6); MONO % 6.8 % (1.0-6.0); RBC 4.44 10^6/uL (3.5-6.1); RED CELL DISTRIBUTION WIDTH 14.2 % (11.5-14.5)
[2017-06-16 09:14] LABS: ALB/GLOB RATIO 1.2 (1.1-1.8); ALBUMIN 3.5 g/dL (3.0-4.8); ALT/SGPT 208 U/L (7-56); AST/SGOT 117 U/L (14-36); BLOOD UREA NITROGEN 9 mg/dL (7-21); GFR AFRICAN-AMERICAN > 60; GFR NON-AFRICAN AMERICAN > 60
--- NOTE | 2017-06-16 09:34 | CP.PCM.PN ---
<Lorena Horner - Last Filed: 06/16/17 09:36> Subjective - Date & Time of Evaluation Date of Evaluation: 06/16/17 Time of Evaluation: 07:30 - Subjective Subjective: GENERAL SURGERY PROGESS NOTE FOR DR. LUGO Patient seen and examined at beside. Patient states she had one episode of epigastric abdominal pain overnight controlled with medication, no pain since. She is tolerating full liquid diet yesterday. No nausea or vomiting. Patient denies flatus. Denies bowel movement. Objective - Vital Signs/Intake and Output Vital Signs (last 24 hours): Temp Pulse Resp BP Pulse Ox 97.8 F 69 20 130/77 97 06/16/17 07:30 06/16/17 07:30 06/16/17 07:30 06/16/17 07:30 06/16/17 07:30 Intake and Output: 06/16/17 06/16/17 06:59 18:59 Intake Total 1260 540 Output Total 3 Balance 1260 537 - Medications Medications: Current Medications Metronidazole (Flagyl) 500 mg in 100 mls @ 100 mls/hr IVPB Q8 [facility] PRN Reason: Protocol Last Admin: 06/16/17 05:38 Dose: 100 mls/hr Ceftriaxone Sodium (Rocephin 1 Gram Ivpb) 1 gm in 100 mls @ 100 mls/hr IVPB DAILY [facility] PRN Reason: Protocol Last Admin: 06/15/17 10:12 Dose: 100 mls/hr Dextrose/Sodium Chloride (Dextrose 5%/0.45% Ns 1000 Ml) 1,000 mls @ 125 mls/hr IV .Q8H [facility] Last Admin: 06/16/17 08:45 Dose: 125 mls/hr Ondansetron HCl (Zofran Inj) 4 mg IVP Q6H PRN PRN Reason: Nausea/Vomiting Pantoprazole Sodium (Protonix Inj) 40 mg IVP DAILY [facility] Last Admin: 06/15/17 11:00 Dose: 40 mg Tramadol HCl (Ultram) 50 mg PO TID PRN PRN Reason: Pain, moderate (4-7) - Labs Labs: 06/16/17 08:36 06/16/17 08:36 PT 12.6 SECONDS (9.4-12.5) H 06/15/17 11:30 INR 1.09 (0.93-1.08) H 06/15/17 11:30 - Constitutional Appears: Well, Non-toxic, No Acute Distress - Head Exam Head Exam: ATRAUMATIC, NORMOCEPHALIC - Eye Exam Eye Exam: Normal appearance. absent: Scleral icterus - ENT Exam ENT Exam: Mucous Membranes Moist - Respiratory Exam Respiratory Exam: NORMAL BREATHING PATTERN. absent: Accessory Muscle Use, Respiratory Distress - GI/Abdominal Exam GI & Abdominal Exam: Soft. absent: Distended, Tenderness, Rebound - Extremities Exam Extremities Exam: absent: Calf Tenderness, Pedal Edema - Neurological Exam Neurological Exam: Alert, Awake, Oriented x3 - Psychiatric Exam Psychiatric exam: Normal Affect, Normal Mood - Skin Skin Exam: Dry, Intact, Normal Color, Warm Assessment and Plan - Assessment and Plan (Free Text) Assessment: 21 YO F with symptomatic cholelithiasis, possible cholecystitis, r/o choledocholithiasis Direct bilirubin: 1.0 T-bili wnl, LFT's stable WBC wnl today Plan: -F/U MRCP as ordered -NPO for MRCP, then may consider advancing diet as tolerated pending MRCP results -OR Saturday or Saturday for cholecystectomy pending MRCP results and GI plans -F/U GI recs -IVF -IV abx -Pain management, PRN nausea medication -FU CBC/CMP 2/[address] Radha Horner PGY2 <Reese Lugo - Last Filed: 06/16/17 15:57> Objective - Vital Signs/Intake and Output Vital Signs (last 24 hours): Temp Pulse Resp BP Pulse Ox 97.8 F 69 20 130/77 97 06/16/17 07:30 06/16/17 07:30 06/16/17 07:30 06/16/17 07:30 06/16/17 07:30 Intake and Output: 06/16/17 06/16/17 06:59 18:59 Intake Total 1260 540 Output Total 3 Balance 1260 537 - Medications Medications: Current Medications Enoxaparin Sodium (Lovenox) 30 mg SC Q12H [facility] PRN Reason: Protocol Last Admin: 06/16/17 12:37 Dose: Not Given Metronidazole (Flagyl) 500 mg in 100 mls @ 100 mls/hr IVPB Q8 [facility] PRN Reason: Protocol Last Admin: 06/16/17 05:38 Dose: 100 mls/hr Ceftriaxone Sodium (Rocephin 1 Gram Ivpb) 1 gm in 100 mls @ 100 mls/hr IVPB DAILY [facility] PRN Reason: Protocol Last Admin: 06/16/17 09:51 Dose: 100 mls/hr Dextrose/Sodium Chloride (Dextrose 5%/0.45% Ns 1000 Ml) 1,000 mls @ 125 mls/hr IV .Q8H [facility] Last Admin: 06/16/17 08:45 Dose: 125 mls/hr Sodium Chloride (Sodium Chloride 0.9%) 1,000 mls @ 125 mls/hr IV .Q8H [facility] Ondansetron HCl (Zofran Inj) 4 mg IVP Q6H PRN PRN Reason: Nausea/Vomiting Pantoprazole Sodium (Protonix Inj) 40 mg IVP DAILY [facility] Last Admin: 06/16/17 09:50 Dose: 40 mg Tramadol HCl (Ultram) 50 mg PO TID PRN PRN Reason: Pain, moderate (4-7) - Labs Labs: 06/16/17 08:36 06/16/17 08:36 PT 12.6 SECONDS (9.4-12.5) H 06/15/17 11:30 INR 1.09 (0.93-1.08) H 06/15/17 11:30 Attending/Attestation - Attestation I have personally seen and examined this patient.: Yes I have fully participated in the care of the patient.: Yes I have reviewed all pertinent clinical information, including history, physical exam and plan: Yes Notes (Text): Pt was seen and examined at bedside Agree with above note and assessment Pt is improving clinically MRCP is suggestive of No CBD stone Repeat LFT is in am OR tomorrow for Lap Cholecystectomy possible Open Consent NPO, IVF Plan d.w pt in detail. Risk and benefit explained in detail.
[2017-06-16] MEDS: cefTRIAXone 1 gm 1 GM/100 ML BAG IVPB SCH (09:51)
[2017-06-16] MEDS: Enoxaparin 30 mg Syringe SC SCH (12:37)
--- NOTE | 2017-06-16 14:22 | MRI ---
PROCEDURE: Magnetic Resonance Cholangiopancreatography HISTORY: Rule out common duct stones COMPARISON: None available. TECHNIQUE: Multiplanar, multisequence MR images of the abdomen were obtained, including heavily T2 weighted MRCP images of the biliary system. Rotating maximum intensity projection images of the biliary system were generated. FINDINGS: MRCP: The common bile duct is of a normal caliber. No evidence of choledocholithiasis. No intrahepatic biliary ductal dilatation. LIVER: Unremarkable. GALLBLADDER: Multiple small stones fill the gallbladder. SPLEEN: Unremarkable. PANCREAS: Unremarkable. ADRENALS: Unremarkable. KIDNEYS: Unremarkable. AORTA: No aneurysm. ASCITES: None. OTHER FINDINGS: None. IMPRESSION: Multiple small gallstones. No evidence of common duct stone. No obstruction
--- NOTE | 2017-06-16 14:36 | CP.PCM.PN ---
<Buddy Enrique - Last Filed: 06/16/17 14:31> Subjective - Date & Time of Evaluation Date of Evaluation: 06/16/17 Time of Evaluation: 07:30 - Subjective Subjective: Buddy Enrique DO PGY1 - IM Progress Note Patient seen and examined at bedside. No acute events overnight. Patient is currently NPO for MRCP. Patient denies any abdominal pain, nausea, vomiting, diarrhea, constipation. Patient endorses hunger, has not eaten since yesterday prior to admission. She denies chest pain, shortness of breath, fever, chills. Objective - Vital Signs/Intake and Output Vital Signs (last 24 hours): Temp Pulse Resp BP Pulse Ox 97.8 F 69 20 130/77 97 06/16/17 07:30 06/16/17 07:30 06/16/17 07:30 06/16/17 07:30 06/16/17 07:30 Intake and Output: 06/16/17 06/16/17 06:59 18:59 Intake Total 1260 540 Output Total 3 Balance 1260 537 - Medications Medications: Current Medications Enoxaparin Sodium (Lovenox) 30 mg SC Q12H [facility] PRN Reason: Protocol Last Admin: 06/16/17 12:37 Dose: Not Given Metronidazole (Flagyl) 500 mg in 100 mls @ 100 mls/hr IVPB Q8 [facility] PRN Reason: Protocol Last Admin: 06/16/17 05:38 Dose: 100 mls/hr Ceftriaxone Sodium (Rocephin 1 Gram Ivpb) 1 gm in 100 mls @ 100 mls/hr IVPB DAILY [facility] PRN Reason: Protocol Last Admin: 06/16/17 09:51 Dose: 100 mls/hr Dextrose/Sodium Chloride (Dextrose 5%/0.45% Ns 1000 Ml) 1,000 mls @ 125 mls/hr IV .Q8H [facility] Last Admin: 06/16/17 08:45 Dose: 125 mls/hr Ondansetron HCl (Zofran Inj) 4 mg IVP Q6H PRN PRN Reason: Nausea/Vomiting Pantoprazole Sodium (Protonix Inj) 40 mg IVP DAILY [facility] Last Admin: 06/16/17 09:50 Dose: 40 mg Tramadol HCl (Ultram) 50 mg PO TID PRN PRN Reason: Pain, moderate (4-7) - Labs Labs: 06/16/17 08:36 06/16/17 08:36 PT 12.6 SECONDS (9.4-12.5) H 06/15/17 11:30 INR 1.09 (0.93-1.08) H 06/15/17 11:30 - Constitutional Appears: Non-toxic, No Acute Distress - Head Exam Head Exam: ATRAUMATIC, NORMOCEPHALIC - Eye Exam Eye Exam: EOMI, Normal appearance, PERRL - ENT Exam ENT Exam: Mucous Membranes Moist - Neck Exam Neck Exam: Normal Inspection - Respiratory Exam Respiratory Exam: Clear to Ausculation Bilateral, NORMAL BREATHING PATTERN - Cardiovascular Exam Cardiovascular Exam: RRR, +S1, +S2 - GI/Abdominal Exam GI & Abdominal Exam: Soft, Normal Bowel Sounds. absent: Distended, Firm, Guarding, Rigid, Tenderness, Organomegaly - Extremities Exam Extremities Exam: absent: Calf Tenderness, Pedal Edema - Neurological Exam Neurological Exam: Alert, Awake, Oriented x3 - Psychiatric Exam Psychiatric exam: Normal Affect, Normal Mood - Skin Skin Exam: Dry, Intact Assessment and Plan - Assessment and Plan (Free Text) Assessment: 21 F with no past medical history presents to the emergency department for abdominal pain. Patient found to cholelithiasis on abd US, r/o choledocholithiasis. Awaiting MRCP. 1. Abdominal pain 2/2 cholelithiasis, r/o choledocholithiasis - Leukocytosis resolved, afebrile - LFT's trending down; bili normal - MRCP pending - Continue Rocephin and Flagyl - Pain control - Tramadol 50mg TID PRN - Antiemetic therapy as needed - IVF with NS @ 100 - F/u Surgery consult recs - F/u GI consult recs 2. GI/DVT ppx - Protonix and SCDs & ambulation Case and plan was reviewed and discussed in detail with Dr Jensen <Ramirez Jensen - Last Filed: 06/23/17 21:57> Objective - Vital Signs/Intake and Output Vital Signs (last 24 hours): Temp Pulse Resp BP Pulse Ox 98.5 F 77 18 111/60 98 06/19/17 08:25 06/19/17 08:25 06/19/17 08:25 06/19/17 08:25 06/19/17 08:25 - Labs Labs: 06/19/17 06:40 06/19/17 06:40 PT 12.6 SECONDS (9.4-12.5) H 06/15/17 11:30 INR 1.09 (0.93-1.08) H 06/15/17 11:30 Attending/Attestation - Attestation I have personally seen and examined this patient.: Yes I have fully participated in the care of the patient.: Yes I have reviewed all pertinent clinical information, including history, physical exam and plan: Yes Notes (Text): I have seen and examined patient with the resident at bedside. Agree with the above note with the following additions/ exceptions: Briefly this is 21 year old female with morbid obesity who came for evaluation of abdominal pain and found to have biliary colic. Patient had multiple episodes of RUQ pain in the past. She has leukocytosis, hyperbilirubinemia and transaminitis. US revealed cholelithiasis and dilated CBD 7mm. MRCP is negative for CBD stone. GI evaluation appreciated. Plan for lap cholecystectomy tomorrow. Upon discharge patient will follow up with PMD of choice. Dr Ramirez Jensen
--- NOTE | 2017-06-16 14:43 | CP.PCM.PN ---
<Bryant Negron - Last Filed: 06/16/17 14:44> Subjective - Date & Time of Evaluation Date of Evaluation: 06/16/17 Time of Evaluation: 12:00 - Subjective Subjective: PGY 4 GI follow-up Pt seen and examined bedside No overnight events denies any fever, chills, or diaphoresis denies any RUQ pain tolerating diet ROS: 10 point ROS conducted, neg other than above Objective - Vital Signs/Intake and Output Vital Signs (last 24 hours): Temp Pulse Resp BP Pulse Ox 97.8 F 69 20 130/77 97 06/16/17 07:30 06/16/17 07:30 06/16/17 07:30 06/16/17 07:30 06/16/17 07:30 Intake and Output: 06/16/17 06/16/17 06:59 18:59 Intake Total 1260 540 Output Total 3 Balance 1260 537 - Medications Medications: Current Medications Enoxaparin Sodium (Lovenox) 30 mg SC Q12H [facility] PRN Reason: Protocol Last Admin: 06/16/17 12:37 Dose: Not Given Metronidazole (Flagyl) 500 mg in 100 mls @ 100 mls/hr IVPB Q8 [facility] PRN Reason: Protocol Last Admin: 06/16/17 05:38 Dose: 100 mls/hr Ceftriaxone Sodium (Rocephin 1 Gram Ivpb) 1 gm in 100 mls @ 100 mls/hr IVPB DAILY [facility] PRN Reason: Protocol Last Admin: 06/16/17 09:51 Dose: 100 mls/hr Dextrose/Sodium Chloride (Dextrose 5%/0.45% Ns 1000 Ml) 1,000 mls @ 125 mls/hr IV .Q8H [facility] Last Admin: 06/16/17 08:45 Dose: 125 mls/hr Ondansetron HCl (Zofran Inj) 4 mg IVP Q6H PRN PRN Reason: Nausea/Vomiting Pantoprazole Sodium (Protonix Inj) 40 mg IVP DAILY [facility] Last Admin: 06/16/17 09:50 Dose: 40 mg Tramadol HCl (Ultram) 50 mg PO TID PRN PRN Reason: Pain, moderate (4-7) - Labs Labs: 06/16/17 08:36 06/16/17 08:36 PT 12.6 SECONDS (9.4-12.5) H 06/15/17 11:30 INR 1.09 (0.93-1.08) H 06/15/17 11:30 - Constitutional Appears: Well, No Acute Distress - Head Exam Head Exam: ATRAUMATIC, NORMOCEPHALIC - Eye Exam Eye Exam: Normal appearance - ENT Exam ENT Exam: Mucous Membranes Moist, Normal Exam - Respiratory Exam Respiratory Exam: Clear to Ausculation Bilateral, NORMAL BREATHING PATTERN. absent: Rales, Rhonchi, Wheezes, Respiratory Distress - Cardiovascular Exam Cardiovascular Exam: REGULAR RHYTHM, +S1, +S2 - GI/Abdominal Exam GI & Abdominal Exam: Soft, Normal Bowel Sounds. absent: Guarding, Rigid, Tenderness, Organomegaly, Rebound - Extremities Exam Extremities Exam: absent: Joint Swelling, Pedal Edema - Neurological Exam Neurological Exam: Alert, Awake, Oriented x3 - Psychiatric Exam Psychiatric exam: Normal Affect, Normal Mood - Skin Skin Exam: Dry, Intact, Normal Color, Warm Assessment and Plan - Assessment and Plan (Free Text) Assessment: Lucy Rapp is a 21F w/ a hx of obesity who presents to the ER with abdominal pain. Clinical findings suggest acute cholecystitis Abdominal pain - acute cholecystitis Obesity Transaminitis Abdominal US reviewed by me showing cholelithiasis with CBD of 7mm, no intrahepatic ductal dilation Plan: - diet as per surgery - Continue with antibiotic therapy as per surgery - Continue to monitor LFTs, obtain viral hepatitis panel (pending) - MRCP revealed normal CBD and no choledocholithiasis - Follow up surgical recommendations regarding timing of potential cholecystectomy -no indication for ERCP prior to surgery D/W Dr. Roe [facility] - Last Filed: 06/16/17 16:06> Objective - Vital Signs/Intake and Output Vital Signs (last 24 hours): Temp Pulse Resp BP Pulse Ox 97.8 F 69 20 130/77 97 06/16/17 07:30 06/16/17 07:30 06/16/17 07:30 06/16/17 07:30 06/16/17 07:30 Intake and Output: 06/16/17 06/16/17 06:59 18:59 Intake Total 1260 540 Output Total 3 Balance 1260 537 - Medications Medications: Current Medications Enoxaparin Sodium (Lovenox) 30 mg SC Q12H [facility] PRN Reason: Protocol Last Admin: 06/16/17 12:37 Dose: Not Given Metronidazole (Flagyl) 500 mg in 100 mls @ 100 mls/hr IVPB Q8 [facility] PRN Reason: Protocol Last Admin: 06/16/17 05:38 Dose: 100 mls/hr Ceftriaxone Sodium (Rocephin 1 Gram Ivpb) 1 gm in 100 mls @ 100 mls/hr IVPB DAILY [facility] PRN Reason: Protocol Last Admin: 06/16/17 09:51 Dose: 100 mls/hr Dextrose/Sodium Chloride (Dextrose 5%/0.45% Ns 1000 Ml) 1,000 mls @ 125 mls/hr IV .Q8H [facility] Last Admin: 06/16/17 08:45 Dose: 125 mls/hr Sodium Chloride (Sodium Chloride 0.9%) 1,000 mls @ 125 mls/hr IV .Q8H [facility] Ondansetron HCl (Zofran Inj) 4 mg IVP Q6H PRN PRN Reason: Nausea/Vomiting Pantoprazole Sodium (Protonix Inj) 40 mg IVP DAILY [facility] Last Admin: 06/16/17 09:50 Dose: 40 mg Tramadol HCl (Ultram) 50 mg PO TID PRN PRN Reason: Pain, moderate (4-7) - Labs Labs: 06/16/17 08:36 06/16/17 08:36 PT 12.6 SECONDS (9.4-12.5) H 06/15/17 11:30 INR 1.09 (0.93-1.08) H 06/15/17 11:30 Attending/Attestation - Attestation I have personally seen and examined this patient.: Yes I have fully participated in the care of the patient.: Yes I have reviewed all pertinent clinical information, including history, physical exam and plan: Yes Notes (Text): 06/16/17 16:02 Patient seen with GI fellow on rounds this am. This is a 21 yr old F with morbid obesity admitted with RUQ pain with sonogram consistent with acute cholecystitis. MRCP reviewed that is unremarkable for choledocholithaisis. No other further GI work up is required. Rest of plan as per surgical team. Continue antibiotics. Will sign off now. Thank you for letting us participate in the care of your patient
[2017-06-17] MEDS ORDERED: Sodium Chloride 0.9% 1,000 ML IV SCH ×2 (00:01→15:58)
[2017-06-17] MEDS: metroNIDAZOLE IV 500 mg/100 ml 500 MG/100 ML BAG IVPB SCH ×2 (06:04→21:39)
[2017-06-17 07:27] LABS: ALB/GLOB RATIO 1.2 (1.1-1.8); ALBUMIN 3.5 g/dL (3.0-4.8); ALT/SGPT 142 U/L (7-56); AST/SGOT 55 U/L (14-36); BLOOD UREA NITROGEN 9 mg/dL (7-21); CALCIUM 8.9 mg/dL (8.4-10.5); GFR AFRICAN-AMERICAN > 60; GFR NON-AFRICAN AMERICAN > 60
[2017-06-17 08:03] LABS: BASO # 0.03 K/mm3 (0.0-2.0); BASO % 0.2 % (0.0-3.0); EOS # 0.1 (0.0-0.7); EOS % 1.2 % (1.5-5.0); GRAN # 7.86 (1.4-6.5); GRAN % 65.3 % (50.0-68.0); HEMOGLOBIN 11.2 g/dL (12.0-16.0); LYMPH # 3.2 (1.2-3.4); LYMPH % 26.2 % (22.0-35.0); MEAN CELL VOLUME 84.2 fl (80.0-105.0); MEAN CORPUSCULAR HGB CONC 30.9 g/dl (31.0-37.0); MEAN PLATELET VOLUME 11.3 fl (7.0-11.0); MONO # 0.9 (0.1-0.6); MONO % 7.1 % (1.0-6.0); RBC 4.3 10^6/uL (3.5-6.1); RED CELL DISTRIBUTION WIDTH 14.1 % (11.5-14.5)
[2017-06-17] MEDS: cefTRIAXone 1 gm 1 GM/100 ML BAG IVPB SCH (09:28)
[2017-06-17] MEDS: Dextrose 5%/0.45% NS 1,000 ML IV SCH (09:35)
[2017-06-17 10:22] LABS: HEPATITIS B SURFACE AG Negative (NEGATIVE)
[2017-06-17 10:38] LABS: HEPATITIS C ANTIBODY NEGATIVE (NEGATIVE)
[2017-06-17 10:46] LABS: HEPATITIS A IGM NEGATIVE (NEGATIVE)
[2017-06-17 11:01] LABS: HEPATITIS B CORE AB NEGATIVE (NEGATIVE)
[2017-06-17] MEDS ORDERED: Propofol 10 mg/ml Inj (20 ML) ONE ×3 (13:38→15:14)
[2017-06-17] MEDS ORDERED: Lidocaine 1% Inj (20ml) ONE (13:40)
[2017-06-17] MEDS ORDERED: Midazolam 2 MG/2 ML VIAL ONE (13:40)
[2017-06-17] MEDS ORDERED: Rocuronium 10 mg/ml (5 ml) ONE (13:41)
[2017-06-17] MEDS ORDERED: Neostigmine Methylsulfate 3mg/3ml Syringe IV ONE (14:06)
[2017-06-17] MEDS ORDERED: Morphine 2 mg/ml ISec IVP PRN (14:51)
[2017-06-17] MEDS: Bupivacaine 0.5% Inj(30mL) ONE ×2 (15:03→15:30)
--- NOTE | 2017-06-17 15:55 | PCM.SURG1 ---
Surgeon's Initial Post Op Note - Surgeon's Notes Surgeon: Dr. Garcia Fibrous Plasterer: Dr. Hurd PGY3 Type of Anesthesia: General Endo, Local Pre-Operative Diagnosis: acute cholecystits Operative Findings: acutely inflammed gallbladder w/ multiple gallstones Post-Operative Diagnosis: same Operation Performed: laparoscopic cholecystectomy Specimen/Specimens Removed: gallbladder Estimated Blood Loss: EBL {In ML}: 10 Blood Products Given: N/A Drains Used: No Drains Post-Op Condition: Good Date of Surgery/Procedure: 06/17/17 Time of Surgery/Procedure: 15:54
[2017-06-17] MEDS ORDERED: Oxycodone/Acetaminophen 5/325 mg Tab PO PRN (15:57)
--- NOTE | 2017-06-17 17:08 | CP.PCM.PN ---
<Maximus Enriquegiovannytimothy - Last Filed: 06/17/17 17:04> Subjective - Date & Time of Evaluation Date of Evaluation: 06/17/17 Time of Evaluation: 07:30 - Subjective Subjective: Buddy Enrique DO PGY1 - IM Progress Note Patient seen and examined at bedside. No acute events overnight. Patient is currently NPO for lap tenzin. Patient denies any abdominal pain, nausea, vomiting , diarrhea, constipation. She has been passing gas, but did not have a bowel movement. She denies chest pain, shortness of breath, fever, chills. Objective - Vital Signs/Intake and Output Vital Signs (last 24 hours): Temp Pulse Resp BP Pulse Ox 98.2 F 81 16 127/75 97 06/17/17 16:35 06/17/17 16:35 06/17/17 16:35 06/17/17 16:35 06/17/17 16:35 Intake and Output: 06/17/17 06/17/17 06:59 18:59 Intake Total 0 Balance 0 - Medications Medications: Current Medications Enoxaparin Sodium (Lovenox) 30 mg SC Q12H [facility] PRN Reason: Protocol Last Admin: 06/16/17 12:37 Dose: Not Given Metronidazole (Flagyl) 500 mg in 100 mls @ 100 mls/hr IVPB Q8 [facility] PRN Reason: Protocol Last Admin: 06/17/17 06:04 Dose: 100 mls/hr Ceftriaxone Sodium (Rocephin 1 Gram Ivpb) 1 gm in 100 mls @ 100 mls/hr IVPB DAILY [facility] PRN Reason: Protocol Stop: 06/19/17 10:59 Last Admin: 06/17/17 09:28 Dose: 100 mls/hr Sodium Chloride (Sodium Chloride 0.9%) 1,000 mls @ 75 mls/hr IV .[id number] [facility] Metoclopramide HCl (Reglan) 10 mg IV ONCE PRN PRN Reason: Nausea/Vomiting Morphine Sulfate (Morphine) 2 mg IVP Q15M PRN PRN Reason: Pain, moderate (4-7) Ondansetron HCl (Zofran Inj) 4 mg IVP Q6H PRN PRN Reason: Nausea/Vomiting Oxycodone/Acetaminophen (Percocet 5/325 Mg Tab) 1 tab PO Q4H PRN PRN Reason: Pain, moderate (4-7) Stop: 06/20/17 15:58 Oxycodone/Acetaminophen (Percocet 5/325 Mg Tab) 2 tab PO Q4H PRN PRN Reason: Pain, severe (8-10) Stop: 06/20/17 15:58 Pantoprazole Sodium (Protonix Inj) 40 mg IVP DAILY [facility] Last Admin: 06/17/17 10:54 Dose: 40 mg - Labs Labs: 06/17/17 06:20 06/17/17 06:20 PT 12.6 SECONDS (9.4-12.5) H 06/15/17 11:30 INR 1.09 (0.93-1.08) H 06/15/17 11:30 - Constitutional Appears: Non-toxic, No Acute Distress - Head Exam Head Exam: ATRAUMATIC, NORMOCEPHALIC - Eye Exam Eye Exam: EOMI, Normal appearance, PERRL - ENT Exam ENT Exam: Mucous Membranes Moist - Respiratory Exam Respiratory Exam: Clear to Ausculation Bilateral, NORMAL BREATHING PATTERN - Cardiovascular Exam Cardiovascular Exam: RRR, +S1, +S2 - GI/Abdominal Exam GI & Abdominal Exam: Soft, Normal Bowel Sounds. absent: Tenderness Additional comments: Negative maier's - Extremities Exam Extremities Exam: absent: Calf Tenderness, Pedal Edema - Neurological Exam Neurological Exam: Alert, Awake, Oriented x3 - Psychiatric Exam Psychiatric exam: Normal Affect, Normal Mood - Skin Skin Exam: Dry, Intact, Normal Color Assessment and Plan - Assessment and Plan (Free Text) Assessment: 21 F with no past medical history presents to the emergency department for abdominal pain. Patient found to cholelithiasis on abd US, r/o choledocholithiasis. Awaiting Lap tenzin 1. Abdominal pain 2/2 cholelithiasis, r/o choledocholithiasis - Leukocytosis resolved, afebrile - LFT's trending down; bili normal - MRCP shows gallstones, no CBD stone - Patient scheduled for lap tenzin at 1300 today - Continue Rocephin and Flagyl - Pain control - Tramadol 50mg TID PRN - Antiemetic therapy as needed - IVF with NS @ 100 - F/u Surgery consult recs - F/u GI consult recs 2. GI/DVT ppx - Protonix and SCDs & ambulation Case and plan was reviewed and discussed in detail with Dr Martel <Reji Martel - Last Filed: 06/17/17 17:16> Objective - Vital Signs/Intake and Output Vital Signs (last 24 hours): Temp Pulse Resp BP Pulse Ox 98.2 F 78 20 118/75 98 06/17/17 16:50 06/17/17 16:50 06/17/17 16:50 06/17/17 16:50 06/17/17 16:50 Intake and Output: 06/17/17 06/17/17 06:59 18:59 Intake Total 0 Balance 0 - Medications Medications: Current Medications Enoxaparin Sodium (Lovenox) 30 mg SC Q12H [facility] PRN Reason: Protocol Last Admin: 06/16/17 12:37 Dose: Not Given Metronidazole (Flagyl) 500 mg in 100 mls @ 100 mls/hr IVPB Q8 [facility] PRN Reason: Protocol Last Admin: 06/17/17 06:04 Dose: 100 mls/hr Ceftriaxone Sodium (Rocephin 1 Gram Ivpb) 1 gm in 100 mls @ 100 mls/hr IVPB DAILY [facility] PRN Reason: Protocol Stop: 06/19/17 10:59 Last Admin: 06/17/17 09:28 Dose: 100 mls/hr Sodium Chloride (Sodium Chloride 0.9%) 1,000 mls @ 75 mls/hr IV .[id number] [facility] Metoclopramide HCl (Reglan) 10 mg IV ONCE PRN PRN Reason: Nausea/Vomiting Ondansetron HCl (Zofran Inj) 4 mg IVP Q6H PRN PRN Reason: Nausea/Vomiting Oxycodone/Acetaminophen (Percocet 5/325 Mg Tab) 1 tab PO Q4H PRN PRN Reason: Pain, moderate (4-7) Stop: 06/20/17 15:58 Oxycodone/Acetaminophen (Percocet 5/325 Mg Tab) 2 tab PO Q4H PRN PRN Reason: Pain, severe (8-10) Stop: 06/20/17 15:58 Pantoprazole Sodium (Protonix Inj) 40 mg IVP DAILY [facility] Last Admin: 06/17/17 10:54 Dose: 40 mg - Labs Labs: 06/17/17 06:20 06/17/17 06:20 PT 12.6 SECONDS (9.4-12.5) H 06/15/17 11:30 INR 1.09 (0.93-1.08) H 06/15/17 11:30 Attending/Attestation - Attestation I have personally seen and examined this patient.: Yes I have fully participated in the care of the patient.: Yes I have reviewed all pertinent clinical information, including history, physical exam and plan: Yes Notes (Text): 06/17/17 17:15 Attending note; Patient seen and examined with the resident. Patient is a 21 year old female with history of morbid obesity who came for evaluation of abdominal pain and found to have biliary colic. Patient had multiple episodes of RUQ pain in the past. She has leukocytosis, hyperbilirubinemia and transaminitis. US revealed cholelithiasis and dilated CBD 7mm. MRCP is negative for CBD stone. GI evaluation appreciated. Plan for lap cholecystectomy today. Upon discharge patient will follow up with PMD of choice.
--- NOTE | 2017-06-17 18:00 | CARD ---
APPROVED REPORT EKG Measurement Heart [id number] VA [id number] <Conclusion> Normal sinus rhythm with sinus arrhythmia Normal ECG
[2017-06-17] MEDS: Oxycodone/Acetaminophen 5/325 mg Tab PO PRN (23:20)
[2017-06-18] MEDS: Oxycodone/Acetaminophen 5/325 mg Tab PO PRN ×3 (06:07→21:47)
[2017-06-18] MEDS: metroNIDAZOLE IV 500 mg/100 ml 500 MG/100 ML BAG IVPB SCH ×3 (06:07→21:47)
[2017-06-18 06:42] LABS: BASO # 0.01 K/mm3 (0.0-2.0); BASO % 0.1 % (0.0-3.0); GRAN # 11.11 (1.4-6.5); LYMPH # 2.1 (1.2-3.4); LYMPH % 15.1 % (22.0-35.0); MEAN CELL VOLUME 84.1 fl (80.0-105.0); MEAN CORPUSCULAR HEMOGLOBIN 26.5 pg (25.0-35.0); MEAN CORPUSCULAR HGB CONC 31.6 g/dl (31.0-37.0); MEAN PLATELET VOLUME 10.5 fl (7.0-11.0); MONO # 0.8 (0.1-0.6); MONO % 5.8 % (1.0-6.0); RBC 4.52 10^6/uL (3.5-6.1); WHITE BLOOD COUNT 14.1 10^3/ul (4.5-11.0)
[2017-06-18 07:06] LABS: ALB/GLOB RATIO 1.1 (1.1-1.8); ALBUMIN 3.7 g/dL (3.0-4.8); ALT/SGPT 131 U/L (7-56); AST/SGOT 57 U/L (14-36); BLOOD UREA NITROGEN 7 mg/dL (7-21); CALCIUM 9.3 mg/dL (8.4-10.5); GFR AFRICAN-AMERICAN > 60; GFR NON-AFRICAN AMERICAN > 60
--- NOTE | 2017-06-18 07:28 | CP.PCM.PN ---
<Adam Guzman - Last Filed: 06/18/17 09:23> Subjective - Date & Time of Evaluation Date of Evaluation: 06/18/17 Time of Evaluation: 06:40 - Subjective Subjective: General Surgery Progress Note for Dr. Garcia Patient seen and examined at bedside. Patient reports some intermittent abdominal pain that is well controlled with current pain regiment. Patient denies fever, chills, nausea, or vomiting. Patient reports passing a bowel movement and urinating. Chart review indicates that overnight patient had one episode of break-through pain. Objective - Vital Signs/Intake and Output Vital Signs (last 24 hours): Temp Pulse Resp BP Pulse Ox 99.1 F 81 20 113/64 97 06/17/17 17:53 06/17/17 17:53 06/17/17 17:53 06/17/17 17:53 06/17/17 17:53 Intake and Output: 06/18/17 06/18/17 06:59 18:59 Intake Total 240 Balance 240 - Medications Medications: Current Medications Enoxaparin Sodium (Lovenox) 30 mg SC Q12H [facility] PRN Reason: Protocol Last Admin: 06/16/17 12:37 Dose: Not Given Metronidazole (Flagyl) 500 mg in 100 mls @ 100 mls/hr IVPB Q8 [facility] PRN Reason: Protocol Last Admin: 06/18/17 06:07 Dose: 100 mls/hr Ceftriaxone Sodium (Rocephin 1 Gram Ivpb) 1 gm in 100 mls @ 100 mls/hr IVPB DAILY [facility] PRN Reason: Protocol Stop: 06/19/17 10:59 Last Admin: 06/17/17 09:28 Dose: 100 mls/hr Metoclopramide HCl (Reglan) 10 mg IV ONCE PRN PRN Reason: Nausea/Vomiting Ondansetron HCl (Zofran Inj) 4 mg IVP Q6H PRN PRN Reason: Nausea/Vomiting Oxycodone/Acetaminophen (Percocet 5/325 Mg Tab) 1 tab PO Q4H PRN PRN Reason: Pain, moderate (4-7) Stop: 06/20/17 15:58 Last Admin: 06/17/17 19:27 Dose: 1 tab Oxycodone/Acetaminophen (Percocet 5/325 Mg Tab) 2 tab PO Q4H PRN PRN Reason: Pain, severe (8-10) Stop: 06/20/17 15:58 Last Admin: 06/18/17 06:07 Dose: 2 tab Pantoprazole Sodium (Protonix Inj) 40 mg IVP DAILY [facility] Last Admin: 06/17/17 10:54 Dose: 40 mg - Labs Labs: 06/17/17 06:20 06/18/17 06:15 PT 12.6 SECONDS (9.4-12.5) H 06/15/17 11:30 INR 1.09 (0.93-1.08) H 06/15/17 11:30 - Constitutional Appears: Well, Non-toxic - Head Exam Head Exam: ATRAUMATIC, NORMOCEPHALIC - Eye Exam Eye Exam: EOMI, Normal appearance - ENT Exam ENT Exam: Mucous Membranes Moist, Normal Oropharynx - Respiratory Exam Respiratory Exam: NORMAL BREATHING PATTERN. absent: Accessory Muscle Use - GI/Abdominal Exam GI & Abdominal Exam: Soft, Tenderness (around incision site). absent: Guarding , Rigid, Rebound - Extremities Exam Extremities Exam: Normal Inspection. absent: Calf Tenderness - Neurological Exam Neurological Exam: Alert, Awake, Oriented x3 - Psychiatric Exam Psychiatric exam: Normal Affect, Normal Mood - Skin Skin Exam: Dry, Intact, Normal Color, Warm Assessment and Plan - Assessment and Plan (Free Text) Assessment: 21 year old female who presented with acute cholcystitis; s/p POD #1 laparascopic cholecystectomy. Plan: Will advance patient to regular diet Labs reveal a down trend in LFTs, but an elevated WBC; patient is afebrile OOB as tolerated DVT prophylaxis Continue medical management Will continue to monitor patient clinically Further recommendations per attending physician, Dr. Garcia <Reese Garcia - Last Filed: 06/23/17 18:45> Objective - Vital Signs/Intake and Output Vital Signs (last 24 hours): Temp Pulse Resp BP Pulse Ox 98.5 F 77 18 111/60 98 06/19/17 08:25 06/19/17 08:25 06/19/17 08:25 06/19/17 08:25 06/19/17 08:25 - Labs Labs: 06/19/17 06:40 06/19/17 06:40 PT 12.6 SECONDS (9.4-12.5) H 06/15/17 11:30 INR 1.09 (0.93-1.08) H 06/15/17 11:30 Attending/Attestation - Attestation I have fully participated in the care of the patient.: Yes I have reviewed all pertinent clinical information, including history, physical exam and plan: Yes Notes (Text): Pt is improving clinically WBC trending down Reg low fat diet Cw IV antibiotics Plan d.w primary team in detail
--- NOTE | 2017-06-18 10:18 | CP.PCM.PN ---
<Sung Yuan - Last Filed: 06/18/17 12:33> Subjective - Date & Time of Evaluation Date of Evaluation: 06/18/17 Time of Evaluation: 07:45 - Subjective Subjective: Medicine Progress note. Dr. Martel Pt seen and examined at bedside. No acute events reported overnight. Tolerated liquids last night. States pain is well controlled with current pain regimen. Denies N/v/D. Denies cough, fever, CP/SOB. No New complaints. Would like to be discharged as soon as possible. Objective - Vital Signs/Intake and Output Vital Signs (last 24 hours): Temp Pulse Resp BP Pulse Ox 98.7 F 90 16 109/58 L 100 06/18/17 07:30 06/18/17 07:30 06/18/17 07:30 06/18/17 07:30 06/18/17 07:30 Intake and Output: 06/18/17 06/18/17 06:59 18:59 Intake Total 240 Balance 240 - Medications Medications: Current Medications Enoxaparin Sodium (Lovenox) 30 mg SC Q12H BREA PRN Reason: Protocol Last Admin: 06/16/17 12:37 Dose: Not Given Metronidazole (Flagyl) 500 mg in 100 mls @ 100 mls/hr IVPB Q8 BREA PRN Reason: Protocol Last Admin: 06/18/17 06:07 Dose: 100 mls/hr Ceftriaxone Sodium (Rocephin 1 Gram Ivpb) 1 gm in 100 mls @ 100 mls/hr IVPB DAILY BREA PRN Reason: Protocol Stop: 06/19/17 10:59 Last Admin: 06/17/17 09:28 Dose: 100 mls/hr Metoclopramide HCl (Reglan) 10 mg IV ONCE PRN PRN Reason: Nausea/Vomiting Ondansetron HCl (Zofran Inj) 4 mg IVP Q6H PRN PRN Reason: Nausea/Vomiting Oxycodone/Acetaminophen (Percocet 5/325 Mg Tab) 1 tab PO Q4H PRN PRN Reason: Pain, moderate (4-7) Stop: 06/20/17 15:58 Last Admin: 06/17/17 19:27 Dose: 1 tab Oxycodone/Acetaminophen (Percocet 5/325 Mg Tab) 2 tab PO Q4H PRN PRN Reason: Pain, severe (8-10) Stop: 06/20/17 15:58 Last Admin: 06/18/17 06:07 Dose: 2 tab Pantoprazole Sodium (Protonix Inj) 40 mg IVP DAILY BREA Last Admin: 06/17/17 10:54 Dose: 40 mg - Labs Labs: 06/18/17 06:15 06/18/17 06:15 PT 12.6 SECONDS (9.4-12.5) H 06/15/17 11:30 INR 1.09 (0.93-1.08) H 06/15/17 11:30 - Constitutional Appears: Well, Non-toxic, No Acute Distress - Head Exam Head Exam: ATRAUMATIC, NORMAL INSPECTION, NORMOCEPHALIC - Eye Exam Eye Exam: EOMI, Normal appearance - ENT Exam ENT Exam: Mucous Membranes Moist - Respiratory Exam Respiratory Exam: Clear to Ausculation Bilateral, NORMAL BREATHING PATTERN. absent: Accessory Muscle Use, Wheezes, Respiratory Distress - Cardiovascular Exam Cardiovascular Exam: absent: JVD - GI/Abdominal Exam GI & Abdominal Exam: Soft. absent: Distended, Firm, Guarding, Rigid, Tenderness , Rebound Additional comments: skin incisions x4 intact with dressings in place. Mild tenderness to periincisional palpation. - Extremities Exam Extremities Exam: Normal Inspection. absent: Calf Tenderness - Neurological Exam Neurological Exam: Alert, Awake, Oriented x3 - Psychiatric Exam Psychiatric exam: Normal Affect, Normal Mood - Skin Skin Exam: Dry, Intact, Normal Color, Warm Assessment and Plan - Assessment and Plan (Free Text) Assessment: 21yo F w no PMHx here for symptomatic cholelithiasis, possible cholecystitis. S/ P Lap Cholecystectomy on 06/17/17. 1. Symptomatic Cholelithiasis, possible Cholecystitis - MRCP with no evidence of choledocholithiasis - Will trend LFTs. Likely elevated upon admission due to passed stone - Continues to have a leukocytosis; consider post-operative vs. infectious. Will trend in AM - Continue IV Abx. Will be discharged home on PO Abx when cleared. - Pain control - Tolerating diet. ADAT - Surgery team following, Dr. Garcia 2. PPx Incentive Spirometer SCDs, Lovenox Encourage Ambulation Further recs as per Dr. Tahmina Yuan PGY1 <Reji Martel - Last Filed: 06/18/17 15:53> Objective - Vital Signs/Intake and Output Vital Signs (last 24 hours): Temp Pulse Resp BP Pulse Ox 98.7 F 90 16 109/58 L 100 06/18/17 07:30 06/18/17 07:30 06/18/17 07:30 06/18/17 07:30 06/18/17 07:30 Intake and Output: 06/18/17 06/18/17 06:59 18:59 Intake Total 240 120 Output Total 3 Balance 240 117 - Medications Medications: Current Medications Enoxaparin Sodium (Lovenox) 30 mg SC Q12H BREA PRN Reason: Protocol Last Admin: 06/18/17 11:41 Dose: 30 mg Metronidazole (Flagyl) 500 mg in 100 mls @ 100 mls/hr IVPB Q8 BREA PRN Reason: Protocol Last Admin: 06/18/17 14:07 Dose: 100 mls/hr Ceftriaxone Sodium (Rocephin 1 Gram Ivpb) 1 gm in 100 mls @ 100 mls/hr IVPB DAILY [facility] PRN Reason: Protocol Stop: 06/19/17 10:59 Last Admin: 06/18/17 11:43 Dose: 100 mls/hr Metoclopramide HCl (Reglan) 10 mg IV ONCE PRN PRN Reason: Nausea/Vomiting Ondansetron HCl (Zofran Inj) 4 mg IVP Q6H PRN PRN Reason: Nausea/Vomiting Last Admin: 06/18/17 13:06 Dose: 4 mg Oxycodone/Acetaminophen (Percocet 5/325 Mg Tab) 1 tab PO Q4H PRN PRN Reason: Pain, moderate (4-7) Stop: 06/20/17 15:58 Last Admin: 06/17/17 19:27 Dose: 1 tab Oxycodone/Acetaminophen (Percocet 5/325 Mg Tab) 2 tab PO Q4H PRN PRN Reason: Pain, severe (8-10) Stop: 06/20/17 15:58 Last Admin: 06/18/17 14:01 Dose: 2 tab Pantoprazole Sodium (Protonix Inj) 40 mg IVP DAILY [facility] Last Admin: 06/18/17 11:41 Dose: 40 mg - Labs Labs: 06/18/17 06:15 06/18/17 06:15 PT 12.6 SECONDS (9.4-12.5) H 06/15/17 11:30 INR 1.09 (0.93-1.08) H 06/15/17 11:30 Attending/Attestation - Attestation I have personally seen and examined this patient.: Yes I have fully participated in the care of the patient.: Yes I have reviewed all pertinent clinical information, including history, physical exam and plan: Yes Notes (Text): 06/18/17 15:51 Attending note; Patient seen and examined with the resident. Patient is a 21 year old female with history of morbid obesity is admitted with acute cholecystitis. She has leukocytosis, hyperbilirubinemia and transaminitis. US revealed cholelithiasis and dilated CBD 7mm. MRCP is negative for CBD stone. GI evaluation appreciated. Currently status post lap cholecystectomy postop day #1. Tolerating diet. Ambulating fine. Still with mildly elevated white count. Monitor closely. Possible discharge home tomorrow. Upon discharge patient will follow up with PMD of choice.
[2017-06-18] MEDS: Enoxaparin 30 mg Syringe SC SCH (11:41)
[2017-06-18] MEDS: cefTRIAXone 1 gm 1 GM/100 ML BAG IVPB SCH (11:43)
[2017-06-18 16:51] VITALS: O2SAT 98
[2017-06-19] MEDS: Enoxaparin 30 mg Syringe SC SCH ×2 (02:25→14:30)
[2017-06-19] MEDS: metroNIDAZOLE IV 500 mg/100 ml 500 MG/100 ML BAG IVPB SCH ×2 (06:26→14:30)
[2017-06-19] MEDS: Oxycodone/Acetaminophen 5/325 mg Tab PO PRN (06:26)
[2017-06-19 06:59] LABS: BASO # 0.02 K/mm3 (0.0-2.0); BASO % 0.2 % (0.0-3.0); EOS % 0.3 % (1.5-5.0); GRAN # 8.5 (1.4-6.5); GRAN % 72.1 % (50.0-68.0); HEMOGLOBIN 11.7 g/dL (12.0-16.0); LYMPH # 2.3 (1.2-3.4); LYMPH % 19.8 % (22.0-35.0); MEAN CELL VOLUME 84.5 fl (80.0-105.0); MEAN CORPUSCULAR HEMOGLOBIN 26.6 pg (25.0-35.0); MEAN CORPUSCULAR HGB CONC 31.5 g/dl (31.0-37.0); MEAN PLATELET VOLUME 10.7 fl (7.0-11.0); MONO # 0.9 (0.1-0.6); MONO % 7.6 % (1.0-6.0); RBC 4.4 10^6/uL (3.5-6.1); RED CELL DISTRIBUTION WIDTH 14.2 % (11.5-14.5); WHITE BLOOD COUNT 11.8 10^3/ul (4.5-11.0)
[2017-06-19 07:30] LABS: ALB/GLOB RATIO 1.1 (1.1-1.8); ALBUMIN 3.6 g/dL (3.0-4.8); ALT/SGPT 110 U/L (7-56); AST/SGOT 54 U/L (14-36); BLOOD UREA NITROGEN 8 mg/dL (7-21); GFR AFRICAN-AMERICAN > 60; GFR NON-AFRICAN AMERICAN > 60
[2017-06-19 08:25] VITALS: BP 111/60; PULSE 77; RESP 18; TEMP 98.5
--- NOTE | 2017-06-19 09:34 | CP.PCM.PN ---
<Adam Guzman - Last Filed: 06/19/17 09:28> Subjective - Date & Time of Evaluation Date of Evaluation: 06/19/17 Time of Evaluation: 07:10 - Subjective Subjective: General Surgery Progress Note for Dr. Garcia Patient seen and examined at bedside. Patient reports some abdominal tenderness. Patient is passing BM, tolerating diet, and urinating. Nurse reports no events overnight. Objective - Vital Signs/Intake and Output Vital Signs (last 24 hours): Temp Pulse Resp BP Pulse Ox 98.5 F 77 18 111/60 98 06/19/17 08:25 06/19/17 08:25 06/19/17 08:25 06/19/17 08:25 06/19/17 08:25 Intake and Output: 06/19/17 06/19/17 06:59 18:59 Intake Total 60 Balance 60 - Medications Medications: Current Medications Enoxaparin Sodium (Lovenox) 30 mg SC Q12H BREA PRN Reason: Protocol Last Admin: 06/19/17 02:25 Dose: Not Given Metronidazole (Flagyl) 500 mg in 100 mls @ 100 mls/hr IVPB Q8 BREA PRN Reason: Protocol Last Admin: 06/19/17 06:26 Dose: 100 mls/hr Ceftriaxone Sodium (Rocephin 1 Gram Ivpb) 1 gm in 100 mls @ 100 mls/hr IVPB DAILY BREA PRN Reason: Protocol Stop: 06/19/17 10:59 Last Admin: 06/18/17 11:43 Dose: 100 mls/hr Metoclopramide HCl (Reglan) 10 mg IV ONCE PRN PRN Reason: Nausea/Vomiting Ondansetron HCl (Zofran Inj) 4 mg IVP Q6H PRN PRN Reason: Nausea/Vomiting Last Admin: 06/19/17 08:07 Dose: 4 mg Oxycodone/Acetaminophen (Percocet 5/325 Mg Tab) 1 tab PO Q4H PRN PRN Reason: Pain, moderate (4-7) Stop: 06/20/17 15:58 Last Admin: 06/17/17 19:27 Dose: 1 tab Oxycodone/Acetaminophen (Percocet 5/325 Mg Tab) 2 tab PO Q4H PRN PRN Reason: Pain, severe (8-10) Stop: 06/20/17 15:58 Last Admin: 06/19/17 06:26 Dose: 2 tab Pantoprazole Sodium (Protonix Inj) 40 mg IVP DAILY [facility] Last Admin: 06/18/17 11:41 Dose: 40 mg - Labs Labs: 06/19/17 06:40 06/19/17 06:40 PT 12.6 SECONDS (9.4-12.5) H 06/15/17 11:30 INR 1.09 (0.93-1.08) H 06/15/17 11:30 - Constitutional Appears: Well, Non-toxic - Head Exam Head Exam: ATRAUMATIC, NORMOCEPHALIC - Eye Exam Eye Exam: EOMI, Normal appearance - ENT Exam ENT Exam: Mucous Membranes Moist, Normal Oropharynx - Neck Exam Neck Exam: Normal Inspection - Respiratory Exam Respiratory Exam: NORMAL BREATHING PATTERN. absent: Accessory Muscle Use - GI/Abdominal Exam GI & Abdominal Exam: Soft, Tenderness (mild tenderness at incision sites), Normal Bowel Sounds - Rectal Exam Rectal Exam: absent: Deferred - Extremities Exam Extremities Exam: Normal Inspection. absent: Normal Capillary Refill - Neurological Exam Neurological Exam: Alert, Awake, Oriented x3 - Psychiatric Exam Psychiatric exam: Normal Affect, Normal Mood - Skin Skin Exam: Dry, Intact, Normal Color, Warm Assessment and Plan - Assessment and Plan (Free Text) Assessment: 22 year old female who is POD #2 s/p laparascopic cholecystectomy. Plan: Patient is stable for discharge Patient to call office of Dr. Garcia to schedule a follow up appointment in 1-2 weeks. Pateint to take course of antibiotics, as directed. Further recommedations per Dr. Garcia. <Reese Garcia - Last Filed: 06/23/17 18:49> Objective - Vital Signs/Intake and Output Vital Signs (last 24 hours): Temp Pulse Resp BP Pulse Ox 98.5 F 77 18 111/60 98 06/19/17 08:25 06/19/17 08:25 06/19/17 08:25 06/19/17 08:25 06/19/17 08:25 - Labs Labs: 06/19/17 06:40 06/19/17 06:40 PT 12.6 SECONDS (9.4-12.5) H 06/15/17 11:30 INR 1.09 (0.93-1.08) H 06/15/17 11:30 Attending/Attestation - Attestation I have personally seen and examined this patient.: Yes I have fully participated in the care of the patient.: Yes I have reviewed all pertinent clinical information, including history, physical exam and plan: Yes Notes (Text): Pt was seen and examined at bedside Agree with above note and assessment Pt is improving clinically Can be DC home Reg low fat diet f/u as outpt Plan d.w pt in detail Risk and benefit explained in detail.
[2017-06-19] MEDS: cefTRIAXone 1 gm 1 GM/100 ML BAG IVPB SCH (10:11)
--- NOTE | 2017-06-19 12:58 | CP.PCM.DIS ---
<Sung Yuan - Last Filed: 06/19/17 12:46> Provider - Provider Date of Admission: 06/15/17 09:08 Attending physician: Reji Martel MD Consults: Surgery: Radha GI: Grabiel Time Spent in preparation of Discharge (in minutes): 45 Hospital Course - Lab Results Lab Results: Most Recent Lab Values WBC 11.8 10^3/ul (4.5-11.0) H 06/19/17 06:40 RBC 4.40 10^6/uL (3.5-6.1) 06/19/17 06:40 Hgb 11.7 g/dL (12.0-16.0) L 06/19/17 06:40 Hct 37.2 % (36.0-48.0) 06/19/17 06:40 MCV 84.5 fl (80.0-105.0) 06/19/17 06:40 MCH 26.6 pg (25.0-35.0) 06/19/17 06:40 MCHC 31.5 g/dl (31.0-37.0) 06/19/17 06:40 RDW 14.2 % (11.5-14.5) 06/19/17 06:40 Plt Count 282 10^3/uL (120.0-450.0) 06/19/17 06:40 MPV 10.7 fl (7.0-11.0) 06/19/17 06:40 Gran % 72.1 % (50.0-68.0) H 06/19/17 06:40 Lymph % (Auto) 19.8 % (22.0-35.0) L 06/19/17 06:40 Morgan % (Auto) 7.6 % (1.0-6.0) H 06/19/17 06:40 Eos % (Auto) 0.3 % (1.5-5.0) L 06/19/17 06:40 Baso % (Auto) 0.2 % (0.0-3.0) 06/19/17 06:40 Gran # 8.50 (1.4-6.5) H 06/19/17 06:40 Lymph # (Auto) 2.3 (1.2-3.4) 06/19/17 06:40 Morgan # (Auto) 0.9 (0.1-0.6) H 06/19/17 06:40 Eos # (Auto) 0.0 (0.0-0.7) 06/19/17 06:40 Baso # (Auto) 0.02 K/mm3 (0.0-2.0) 06/19/17 06:40 PT 12.6 SECONDS (9.4-12.5) H 06/15/17 11:30 INR 1.09 (0.93-1.08) H 06/15/17 11:30 Sodium 141 mmol/L (132-148) 06/19/17 06:40 Potassium 3.6 mmol/L (3.6-5.0) 06/19/17 06:40 Chloride 107 mmol/L (98-107) 06/19/17 06:40 Carbon Dioxide 23 mmol/L (21-33) 06/19/17 06:40 Anion Gap 15 (10-20) 06/19/17 06:40 BUN 8 mg/dL (7-21) 06/19/17 06:40 Creatinine 0.6 mg/dl (0.7-1.2) L 06/19/17 06:40 Est GFR ( Amer) > 60 06/19/17 06:40 Est GFR (Non-Af Amer) > 60 06/19/17 06:40 Random Glucose 84 mg/dL (70-110) 06/19/17 06:40 Calcium 9.0 mg/dL (8.4-10.5) 06/19/17 06:40 Magnesium 1.9 mg/dL (1.7-2.2) 06/15/17 04:45 Total Bilirubin 0.7 mg/dL (0.2-1.3) 06/19/17 06:40 Direct Bilirubin 1.0 mg/dL (0.0-0.4) H 06/15/17 08:30 AST 54 U/L (14-36) H 06/19/17 06:40 ALT 110 U/L (7-56) H 06/19/17 06:40 Alkaline Phosphatase 84 U/L (38-126) 06/19/17 06:40 Total Protein 6.9 g/dL (5.8-8.3) 06/19/17 06:40 Albumin 3.6 g/dL (3.0-4.8) 06/19/17 06:40 Globulin 3.2 gm/dL 06/19/17 06:40 Albumin/Globulin Ratio 1.1 (1.1-1.8) 06/19/17 06:40 Lipase 85 U/L (23-300) 06/15/17 04:45 Urine Color Yellow (YELLOW) 06/15/17 04:35 Urine Appearance Clear (CLEAR) 06/15/17 04:35 Urine pH 6.0 (4.7-8.0) 06/15/17 04:35 Ur Specific [place] 1.025 (1.005-1.035) 06/15/17 04:35 Urine Protein Negative mg/dL (<30 mg/dL) 06/15/17 04:35 Urine Glucose (UA) Negative mg/dL (NEGATIVE) 06/15/17 04:35 Urine Ketones Negative mg/dL (NEGATIVE) 06/15/17 04:35 Urine Blood Negative (NEGATIVE) 06/15/17 04:35 Urine Nitrate Negative (NEGATIVE) 06/15/17 04:35 Urine Bilirubin Negative (NEGATIVE) 06/15/17 04:35 Urine Urobilinogen 0.2 E.U./dL (<1 E.U./dL) 06/15/17 04:35 Ur Leukocyte Esterase Negative Jenniffer/uL (NEGATIVE) 06/15/17 04:35 Urine HCG, Qual Negative (NEGATIVE) 06/15/17 04:35 Hepatitis A IgM Ab Negative (NEGATIVE) 06/15/17 08:30 Hep Bs Antigen Negative (NEGATIVE) 06/15/17 08:30 Hep B Core IgM Ab Negative (NEGATIVE) 06/15/17 08:30 Hepatitis C Antibody Negative (NEGATIVE) 06/15/17 08:30 - Hospital Course Hospital Course: 22yo F with no PMHx here for evaluation of RUQ pain. Abd US with evidence of cholelithiasis and CBD slightly distended. In ER, patient had elevated LFTs. GI was consulted, MRCP with no evidence of CBD stones. Hep panel negative. Surgery consulted and patient underwent lap odilia with no apparent post-operative complications. Patient was cleared for discharge on course of cipro 500mg PO BID x7 days. Patient understands and agrees with plan. Patient to follow up with surgery and find a new PMD for routine blood work within the next week. 1. Symptomatic cholelithiasis. Possible Cholecystitis. S/P Lap Odilia on 06/17/17. Cipro 500mg PO BID x7 days Upon discharge: Patient is cleared for discharge as per Dr. Martel 1. Follow up with Dr. Garcia in 1 week. Call for appointment 2. Use OTC ibuprofen or OTC Tylenol as needed, as directed for pain 3. Follow up with your PMD 4. Return to the ER with any concerning symptoms. Discharge Exam - Head Exam Head Exam: ATRAUMATIC, NORMOCEPHALIC Discharge Plan - Discharge Medications Prescriptions: Ciprofloxacin [Cipro] 500 mg PO BID #14 tab Docusate Sodium [Colace] 100 mg PO BID #20 capsule - Follow Up Plan Condition: STABLE Disposition: HOME/ ROUTINE Instructions: Biliary Colic (GEN), Laparoscopic Cholecystectomy (DC) Additional Instructions: Patient is cleared for discharge as per Dr. Martel 1. Follow up with Dr. Garcia in 1 week. Call for appointment 2. Use OTC ibuprofen or OTC Tylenol as needed, as directed for pain 3. Follow up with your PMD 4. Return to the ER with any concerning symptoms. Referrals: Reese Garcia MD [Medical Doctor] - <Reji Martel - Last Filed: 06/19/17 17:32> Provider - Provider Date of Admission: 06/15/17 09:08 Attending physician: Reji Martel MD Hospital Course - Lab Results Lab Results: Most Recent Lab Values WBC 11.8 10^3/ul (4.5-11.0) H 06/19/17 06:40 RBC 4.40 10^6/uL (3.5-6.1) 06/19/17 06:40 Hgb 11.7 g/dL (12.0-16.0) L 06/19/17 06:40 Hct 37.2 % (36.0-48.0) 06/19/17 06:40 MCV 84.5 fl (80.0-105.0) 06/19/17 06:40 MCH 26.6 pg (25.0-35.0) 06/19/17 06:40 MCHC 31.5 g/dl (31.0-37.0) 06/19/17 06:40 RDW 14.2 % (11.5-14.5) 06/19/17 06:40 Plt Count 282 10^3/uL (120.0-450.0) 06/19/17 06:40 MPV 10.7 fl (7.0-11.0) 06/19/17 06:40 Gran % 72.1 % (50.0-68.0) H 06/19/17 06:40 Lymph % (Auto) 19.8 % (22.0-35.0) L 06/19/17 06:40 Morgan % (Auto) 7.6 % (1.0-6.0) H 06/19/17 06:40 Eos % (Auto) 0.3 % (1.5-5.0) L 06/19/17 06:40 Baso % (Auto) 0.2 % (0.0-3.0) 06/19/17 06:40 Gran # 8.50 (1.4-6.5) H 06/19/17 06:40 Lymph # (Auto) 2.3 (1.2-3.4) 06/19/17 06:40 Morgan # (Auto) 0.9 (0.1-0.6) H 06/19/17 06:40 Eos # (Auto) 0.0 (0.0-0.7) 06/19/17 06:40 Baso # (Auto) 0.02 K/mm3 (0.0-2.0) 06/19/17 06:40 PT 12.6 SECONDS (9.4-12.5) H 06/15/17 11:30 INR 1.09 (0.93-1.08) H 06/15/17 11:30 Sodium 141 mmol/L (132-148) 06/19/17 06:40 Potassium 3.6 mmol/L (3.6-5.0) 06/19/17 06:40 Chloride 107 mmol/L (98-107) 06/19/17 06:40 Carbon Dioxide 23 mmol/L (21-33) 06/19/17 06:40 Anion Gap 15 (10-20) 06/19/17 06:40 BUN 8 mg/dL (7-21) 06/19/17 06:40 Creatinine 0.6 mg/dl (0.7-1.2) L 06/19/17 06:40 Est GFR ( Amer) > 60 06/19/17 06:40 Est GFR (Non-Af Amer) > 60 06/19/17 06:40 Random Glucose 84 mg/dL (70-110) 06/19/17 06:40 Calcium 9.0 mg/dL (8.4-10.5) 06/19/17 06:40 Magnesium 1.9 mg/dL (1.7-2.2) 06/15/17 04:45 Total Bilirubin 0.7 mg/dL (0.2-1.3) 06/19/17 06:40 Direct Bilirubin 1.0 mg/dL (0.0-0.4) H 06/15/17 08:30 AST 54 U/L (14-36) H 06/19/17 06:40 ALT 110 U/L (7-56) H 06/19/17 06:40 Alkaline Phosphatase 84 U/L (38-126) 06/19/17 06:40 Total Protein 6.9 g/dL (5.8-8.3) 06/19/17 06:40 Albumin 3.6 g/dL (3.0-4.8) 06/19/17 06:40 Globulin 3.2 gm/dL 06/19/17 06:40 Albumin/Globulin Ratio 1.1 (1.1-1.8) 06/19/17 06:40 Lipase 85 U/L (23-300) 06/15/17 04:45 Urine Color Yellow (YELLOW) 06/15/17 04:35 Urine Appearance Clear (CLEAR) 06/15/17 04:35 Urine pH 6.0 (4.7-8.0) 06/15/17 04:35 Ur Specific [place] 1.025 (1.005-1.035) 06/15/17 04:35 Urine Protein Negative mg/dL (<30 mg/dL) 06/15/17 04:35 Urine Glucose (UA) Negative mg/dL (NEGATIVE) 06/15/17 04:35 Urine Ketones Negative mg/dL (NEGATIVE) 06/15/17 04:35 Urine Blood Negative (NEGATIVE) 06/15/17 04:35 Urine Nitrate Negative (NEGATIVE) 02/03/18 04:35 Urine Bilirubin Negative (NEGATIVE) 06/15/17 04:35 Urine Urobilinogen 0.2 E.U./dL (<1 E.U./dL) 06/15/17 04:35 Ur Leukocyte Esterase Negative Jenniffer/uL (NEGATIVE) 06/15/17 04:35 Urine HCG, Qual Negative (NEGATIVE) 06/15/17 04:35 Hepatitis A IgM Ab Negative (NEGATIVE) 06/15/17 08:30 Hep Bs Antigen Negative (NEGATIVE) 06/15/17 08:30 Hep B Core IgM Ab Negative (NEGATIVE) 06/15/17 08:30 Hepatitis C Antibody Negative (NEGATIVE) 06/15/17 08:30 Attending/Attestation - Attestation I have personally seen and examined this patient.: Yes I have fully participated in the care of the patient.: Yes I have reviewed all pertinent clinical information, including history, physical exam and plan: Yes Notes (Text): 06/19/17 17:30 Attending note; Patient seen and examined with the resident. Patient is a 21 year old female with history of morbid obesity is admitted with acute cholecystitis. Currently status post lap cholecystectomy postop day #2. Leukocytosis resolved. Patient will be discharged with by mouth ciprofloxacin. Tolerating diet. Ambulating fine. Patient will follow-up with surgery in 1 week. Upon discharge patient will follow up with PMD of choice. Diagnosis; Acute cholecystitis Status post Cholecystectomy Obesity 06/19/17 17:31
--- NOTE | 2017-06-24 03:38 | OP ---
PROCEDURE DATE: 06/17/2017 PREOPERATIVE DIAGNOSES: 1. Acute cholecystitis and cholelithiasis. 2. Abnormal liver function tests. POSTOPERATIVE DIAGNOSES: 1. Acute on chronic cholecystitis and cholelithiasis. 2. Extensive post infectious adhesion. PROCEDURE DONE: 1. Laparoscopic cholecystectomy. 2. Laparoscopic extensive lysis of adhesion. SURGEON: The procedure was done by fl Dr. Garcia. SUGAR REFINER: 1. Pat Hurd, PGY-3, resident. TYPE OF ANESTHESIA: General endotracheal tube anesthesia. ESTIMATED BLOOD LOSS: Around 50 mL. DRAINS: None. PATHOLOGY: Gallbladder with gallstones was sent for the pathology. COMPLICATIONS: None. INTRAOPERATIVE FINDINGS: The patient had acute on chronic cholecystitis and the patient also had post infectious adhesion of the omentum and colon and duodenum to the gallbladder. DESCRIPTION OF PROCEDURE: On intraoperative steps, this 21-year-old female was diagnosed with acute on chronic cholecystitis and cholelithiasis, was consented for laparoscopic cholecystectomy, possible open, brought to the OR, placed supine on the operating table. After induction of anesthesia, the abdomen was prepped and draped in the usual sterile fashion. Supraumbilical transverse incision was made. After incising skin, subcutaneous tissue and the fascia, the Tay port was placed and pneumo was created. The 12-mm port was placed in midline. Another two 5-mm ports were placed in the midclavicular and anterior axillary line. The grasper and dissector were introduced. The patient had morbid obesity and there was omental adhesion as well as colonic adhesion to the gallbladder. First extensive lysis of adhesion was done. The gallbladder was identified. Gallbladder was retracted cranially. Infundibulum was also dissected from the colon and the Calot triangle dissection was done. The cystic duct and cystic artery were identified and clipped at 3 places and cut in between 2 clips nearby gallbladder was dissected free from the gallbladder fossa, placed in an EndoCatch bag, taken out through the umbilical port site and sent off the table for pathology. After suction and irrigation of the gallbladder fossa as well as perihepatic area was done. Hemostasis was achieved. All the port was taken under vision and pneumo was deflated. The umbilical port site was closed with 4-0 Monocryl and count of instrument and guaze was correct. There was no apparent complication. The patient was extubated in OR and sent to the Postanesthesia Care Unit in stable condition. Reese Garcia MD [id number]
== END 2017-06-19 14:28 | disposition home or self-care (01) | DRG 494 ==
LOC: ED 04:25 → ERH 09:08 → 5RNO 10:35
PROVIDERS: ADMIT Hospitalist; ATTEND Internal Medicine
PROC: 0DNU4ZZ Release Omentum, Percutaneous Endoscopic Approach (ICD-10-PCS; 2017-06-17)
PROC: 0FT44ZZ Resection of Gallbladder, Percutaneous Endoscopic Approach (ICD-10-PCS; principal; 2017-06-17 13:00)
DX: K80.10 Calculus of gallbladder with chronic cholecystitis without obstruction (principal); E66.01 Morbid (severe) obesity due to excess calories; K29.70 Gastritis, unspecified, without bleeding; Z68.41 Body mass index [BMI] 40.0-44.9, adult; K66.0 Peritoneal adhesions (postprocedural) (postinfection)